=== PATIENT | female | born 1950 | race Caucasian/White ===

== ENCOUNTER 2017-12-11 07:04 | Day surgery (SDC) | payer OTHER, BC ==
--- NOTE | 2017-12-10 16:28 | RAD REPORT ---
EXAM DESCRIPTION: RADOP - Outpt Chest Pa/Lat (2 Views) - 12/10/2017 4:00 pm CLINICAL HISTORY: Preop chest, pending cardiac catheterization COMPARISON: September 2012 TECHNIQUE: PA and lateral views of the chest were obtained. FINDINGS: The lungs are clear. Lung markings are similar to comparison. No new or enlarging mediasti nal or hilar finding. Trachea is in the midline. Heart size is normal and central vasculature is with in normal limits. No pleural effusion or pneumothorax seen. No acute bony finding noted. No acute ao rtic finding. IMPRESSION: No acute cardiopulmonary process. No significant change from the prior study.
[2017-12-10 16:43] LABS: Absolute Lymphocytes (CBC) 3.5 K/uL (0.7-4.9); Absolute Monocytes 0.5 K/uL (0.1-1.3); Absolute Neutrophil 5.4 K/uL (1.8-8.0); Basophils % 0.3 % (0-1.3); Eosinophils % 1.2 % (0-4.4); Hematocrit 41.9 % (36.0-45.0); Lymphocytes % 36.9 % (15.3-44.8); MCH 30.2 pg (27.0-35.0); Monocytes % 5.3 % (3.3-12.3); RBC Red Blood Cell Count 4.55 M/uL (3.86-4.86)
[2017-12-10 16:58] LABS: Protime INR 1.07
[2017-12-10 17:12] LABS: BUN Blood Urea Nitrogen 16 mg/dL (6-20); Bicarbonate 27 mEq/L (21-31); Glomerular Filtration Rate > 90 mL/min (=/>90); Glucose Level 92 mg/dL (65-120); Potassium 3.9 mEq/L (3.6-5.0); Sodium Level 137 mEq/L (135-145)
[~2017-12-11 07:04] MED LIST: ATROPINE SULF 1 MG/10 ML SYR IV ONE; HEPA 1000U/500MLS 2,000 UNIT/1,000 ML BAG IV ONE; HEPARIN 5000 UNIT/ML 1 ML VIAL ONE; LIDOCAINE 1% 20 ML MDV ONE; NA CHLORIDE 0.9% 0 ML ONE; NICARDIPINE HCL 25 MG/10 ML IV ONE; NITROGLYCERIN/D5W 25 MG/250 ML BTL IV ONE
--- OUTSIDE RECORDS SUMMARY | 2017-12-11 07:06 | XMS REPORT ---
:1950 Author [facility] Address [address] [place] [address] Care Team Providers Name Role Phone Unavailable Unavailable Unavailable Problems This patient has no known problems. Allergies, Adverse Reactions, Alerts This patient has no known allergies or adverse reactions. Medications This patient has no known medications. Results Test Description Test Time Test Comments Text Results Atomic Results Result Comments RAD, SHOULDER, 2017-11-29 Reason for FINAL REPORT PATIENT ID: COMPLETE (MIN 2 22:44:00 Exam:->M06.09 [id number] Clinical VIEWS), RIGHT Diagnosis: M0 6.09 Comparison: No comparison Views: 3 views of the left shoulder and 3 views of the right shoulder Report:The bone mineralization is decreased. There is no evidence of periarticular osteoporosis to suggest hyperemia. There is no evidence of subperiosteal resorption. There are no erosions. The soft tissues are remarkable for a bandage on the left shoulder superiorly . There is no evidence of a fracture, dislocation or radiopaque foreign body. There is no evidence of a lytic bone lesion. Impression:Mild degenerative changes at both the right and left shoulder joints. Joint space narrowing is visualized to a greater extent on the right. A bandage is suspected overlying the left acromioclavicular joint. Signed: Lauren Cesar Verified Date/Time: 11/29/2017 22:44:16 Reading Location: [facility] Radiology Reading Room Y PICKERING, 3 2017-11-29 Reason for FINAL REPORT PATIENT ID: VIEWS, RIGHT 22:43:00 Exam:->M06.09 [id number] Clinical Diagnosis: Rheumatoid arthritis without rheumatoid factor Comparison: No comparison Views: 3 views of the left hand and 3 views of the right hand Report:The bone mineralization is decreased. There is evidence of periarticular osteoporosis to suggest hyperemia. There is no evidence of subperiosteal resorption. There are no erosions. Sclerosis is visualized with joint space narrowing at the radiocarpal joint which is bilateral. A chronic traumatic process is suspected at the right distal interphalangeal joint with joint space narrowing. The soft tissues are unremarkable. There is no evidence of a fracture, dislocation or radiopaque foreign body. There is no evidence of a lytic bone lesion. Impression:Demineralized bone with degenerative change noted. Chronic traumatic changes suspected at the distal right interphalangeal joint. Signed: Lauren Cesar Verified Date/Time: 11/29/2017 22:43:03 Reading Location: [facility] Radiology Reading Room , HAND, 3 2017-08-06 Reason for FINAL REPORT PATIENT ID: VIEWS, LEFT 17:14:00 Exam:->M06.09 [id number] Clinical Diagnosis: Rheumatoid arthritis without rheumatoid factor Comparison: No comparison Views: 3 views of the left hand and 3 views of the right hand Report:The bone mineralization is decreased. There is evidence of periarticular osteoporosis to suggest hyperemia. There is no evidence of subperiosteal resorption. There are no erosions. Sclerosis is visualized with joint space narrowing at the radiocarpal joint which is bilateral. A chronic traumatic process is suspected at the right distal interphalangeal joint with joint space narrowing. The soft tissues are unremarkable. There is no evidence of a fracture, dislocation or radiopaque foreign body. There is no evidence of a lytic bone lesion. Impression:Demineralized bone with degenerative change noted. Chronic traumatic changes suspected at the distal right interphalangeal joint. Signed: Lauren Cesar Verified Date/Time: 08/06/2017 17:14:10 Reading Location: [facility] Radiology Reading Room , SHOULDER, 2017-08-06 Reason for FINAL REPORT PATIENT ID: COMPLETE (MIN 2 17:11:00 Exam:->M06.09 [id number] Clinical VIEWS), LEFT Diagnosis: M0 6.09 Comparison: No comparison Views: 3 views of the left shoulder and 3 views of the right shoulder Report:The bone mineralization is decreased. There is no evidence of periarticular osteoporosis to suggest hyperemia. There is no evidence of subperiosteal resorption. There are no erosions. The soft tissues are remarkable for a bandage on the left shoulder superiorly . There is no evidence of a fracture, dislocation or radiopaque foreign body. There is no evidence of a lytic bone lesion. Impression:Mild degenerative changes at both the right and left shoulder joints. Joint space narrowing is visualized to a greater extent on the right. A bandage is suspected overlying the left acromioclavicular joint. Signed: Lauren Cesar MDReport Verified Date/Time: 08/06/2017 17:11:40 Reading Location: [facility] Radiology Reading Room
--- OUTSIDE RECORDS SUMMARY | 2017-12-11 07:06 | XMS REPORT | Clinical Summary ---
:1950 Author Organization [facility] Address [address] [place] [address] Phone Care Team Providers Name Role Phone Unavailable Primary Care Provider Unavailable Allergies Not on File Current Medications Not on file Active Problems Not on file Encounters Date Type Specialty Care Team Description 08/06/2017 Hospital Encounter Paulina Aviles Rheumatoid arthritis sylvia Dee MD multiple sites without rheumatoid factor (HCC);Polyarthritis with negative rheumatoid factor (HCC);Rheumatoid arthritis without rheumatoid factor, multiple sites (HCC);Rheumatoid arthritis, seronegative, multiple sites (HCC) 08/06/2017 Hospital Encounter Paulina Aviles Rheumatoid Duane MD multiple sites without rheumatoid factor (HCC);Polyarthritis with negative rheumatoid factor (HCC);Rheumatoid arthritis without rheumatoid factor, multiple sites (HCC);Rheumatoid arthritis, seronegative, multiple sites (HCC) 08/06/2017 Hospital Encounter Paulina Aviles Rheumatoid arthritis sylvia Dee MD multiple sites without rheumatoid factor (HCC);Polyarthritis with negative rheumatoid factor (HCC);Rheumatoid arthritis without rheumatoid factor, multiple sites (HCC);Rheumatoid arthritis, seronegative, multiple sites (HCC) 08/06/2017 Hospital Encounter Paulina Aviles Rheumatoid arthritis sylvia Dee MD multiple sites without rheumatoid factor (HCC);Polyarthritis with negative rheumatoid factor (HCC);Rheumatoid arthritis without rheumatoid factor, multiple sites (HCC);Rheumatoid arthritis, seronegative, multiple sites (HCC) 08/06/2017 Outside Orders Paulina Aviles Rheumatoid arthritis sylvia Dee MD multiple sites without rheumatoid factor (HCC) (Primary Dx);Polyarthritis with negative rheumatoid factor (HCC);Rheumatoid arthritis without rheumatoid factor, multiple sites (HCC);Rheumatoid arthritis, seronegative, multiple sites (HCC) after 12/10/2016 Social History Tobacco Use Types Packs/Day Years Used Date Never Assessed Sex Assigned at Date Recorded Not on file Last Filed Vital Signs Not on file Plan of Treatment Not on file Results XR shoulder complete 2 views min right (08/06/2017 4:36 PM) Specimen Performing Laboratory GE RIS Narrative FINAL REPORT Clinical Diagnosis: M0 6.09 Comparison: No comparison Views: 3 views of the left shoulder and 3 views of the right shoulder Report: The bone mineralization is decreased. There is no evidence of periarticular osteoporosis to suggest hyperemia.There is no evidence of subperiosteal resorption.There are no erosions. The soft tissues are remarkable for a bandage on the left shoulder superiorly . There is no evidence of a fracture, dislocation or radiopaque foreign body. There is no evidence of a lytic bone lesion. Impression: Mild degenerative changes at both the right and left shoulder joints. Joint space narrowing is visualized to a greater extent on the right. A bandage is suspected overlying the left acromioclavicular joint. Signed: Lauren Cesar MD Report Verified Date/Time:11/29/2017 22:44:16 Reading Location: [facility] Radiology Reading Room Procedure Note Interface, External Ris In - 11/29/2017 10:44 PM CDT FINAL REPORT Clinical Diagnosis: M0 6.09 Comparison: No comparison Views: 3 views of the left shoulder and 3 views of the right shoulder Report: The bone mineralization is decreased. There is no evidence of periarticular osteoporosis to suggest hyperemia. There is no evidence of subperiosteal resorption. There are no erosions. The soft tissues are remarkable for a bandage on the left shoulder superiorly . There is no evidence of a fracture, dislocation or radiopaque foreign body. There is no evidence of a lytic bone lesion. Impression: Mild degenerative changes at both the right and left shoulder joints. Joint space narrowing is visualized to a greater extent on the right. A bandage is suspected overlying the left acromioclavicular joint. Signed: Lauren Cesar MD Report Verified Date/Time: 11/29/2017 22:44:16 Reading Location: [facility] Radiology Reading Room shoulder complete 2 views min left (08/06/2017 4:36 PM) Specimen Performing Laboratory GE RIS Narrative FINAL REPORT Clinical Diagnosis: M0 6.09 Comparison: No comparison Views: 3 views of the left shoulder and 3 views of the right shoulder Report: The bone mineralization is decreased. There is no evidence of periarticular osteoporosis to suggest hyperemia.There is no evidence of subperiosteal resorption.There are no erosions. The soft tissues are remarkable for a bandage on the left shoulder superiorly . There is no evidence of a fracture, dislocation or radiopaque foreign body. There is no evidence of a lytic bone lesion. Impression: Mild degenerative changes at both the right and left shoulder joints. Joint space narrowing is visualized to a greater extent on the right. A bandage is suspected overlying the left acromioclavicular joint. Signed: Lauren Cesar MD Report Verified Date/Time:08/06/2017 17:11:40 Reading Location: [facility] Radiology Reading Room Procedure Note Interface, External Ris In - 08/06/2017 5:13 PM LEAD DENTAL ASSISTANT FINAL REPORT Clinical Diagnosis: M0 6.09 Comparison: No comparison Views: 3 views of the left shoulder and 3 views of the right shoulder Report: The bone mineralization is decreased. There is no evidence of periarticular osteoporosis to suggest hyperemia. There is no evidence of subperiosteal resorption. There are no erosions. The soft tissues are remarkable for a bandage on the left shoulder superiorly . There is no evidence of a fracture, dislocation or radiopaque foreign body. There is no evidence of a lytic bone lesion. Impression: Mild degenerative changes at both the right and left shoulder joints. Joint space narrowing is visualized to a greater extent on the right. A bandage is suspected overlying the left acromioclavicular joint. Signed: Lauren Cesar MD Report Verified Date/Time: 08/06/2017 17:11:40 Reading Location: [facility] Radiology Reading Room hand 3 views right (08/06/2017 4:36 PM) Specimen Performing Laboratory GE RIS Narrative FINAL REPORT Clinical Diagnosis: Rheumatoid arthritis without rheumatoid factor Comparison: No comparison Views: 3 views of the left hand and 3 views of the right hand Report: The bone mineralization is decreased. There is evidence of periarticular osteoporosis to suggest hyperemia.There is no evidence of subperiosteal resorption.There are no erosions. Sclerosis is visualized with joint space narrowing at the radiocarpal joint which is bilateral. A chronic traumatic process is suspected at the right distal interphalangeal joint with joint space narrowing. The soft tissues are unremarkable. There is no evidence of a fracture, dislocation or radiopaque foreign body. There is no evidence of a lytic bone lesion. Impression: Demineralized bone with degenerative change noted. Chronic traumatic changes suspected at the distal right interphalangeal joint. Signed: Lauren Cesar MD Report Verified Date/Time:11/29/2017 22:43:03 Reading Location: [facility] Radiology Reading Room Procedure Note Interface, External Ris In - 11/29/2017 10:43 PM CDT FINAL REPORT Clinical Diagnosis: Rheumatoid arthritis without rheumatoid factor Comparison: No comparison Views: 3 views of the left hand and 3 views of the right hand Report: The bone mineralization is decreased. There is evidence [...] no evidence of a lytic bone lesion. Impression: Demineralized bone with degenerative change noted. Chronic traumatic changes suspected at the distal right interphalangeal joint. Signed: Lauren Cesar MD Report Verified Date/Time: 11/29/2017 22:43:03 Reading Location: [facility] Radiology Reading Room hand 3 views left (08/06/2017 4:36 PM) Specimen Performing Laboratory GE RIS Narrative FINAL REPORT Clinical Diagnosis: Rheumatoid arthritis without rheumatoid factor Comparison: No comparison Views: 3 views of the left hand and 3 views of the right hand Report: The bone mineralization is decreased. There is evidence of periarticular osteoporosis to suggest hyperemia.There is no evidence of subperiosteal resorption.There are no erosions. Sclerosis is visualized with joint space narrowing at the radiocarpal joint which is bilateral. A chronic traumatic process is suspected at the right distal interphalangeal joint with joint space narrowing. The soft tissues are unremarkable. There is no evidence of a fracture, dislocation or radiopaque foreign body. There is no evidence of a lytic bone lesion. Impression: Demineralized bone with degenerative change noted. Chronic traumatic changes suspected at the distal right interphalangeal joint. Signed: Lauren Cesar MD Report Verified Date/Time:08/06/2017 17:14:10 Reading Location: [facility] Radiology Reading Room Procedure Note Interface, External Ris In - 08/06/2017 5:16 PM LEAD DENTAL ASSISTANT FINAL REPORT Clinical Diagnosis: Rheumatoid arthritis without rheumatoid factor Comparison: No comparison Views: 3 views of the left hand and 3 views of the right hand Report: The bone mineralization is decreased. There is evidence [...] no evidence of a lytic bone lesion. Impression: Demineralized bone with degenerative change noted. Chronic traumatic changes suspected at the distal right interphalangeal joint. Signed: Lauren Cesar MD Report Verified Date/Time: 08/06/2017 17:14:10 Reading Location: [facility] Radiology Reading Room after 12/10/2016
[2017-12-11] MEDS ORDERED: NA CHLORIDE 0.9% 500 ML ONE (07:13)
[2017-12-11] MEDS ORDERED: MIDAZOLAM HCL 2 MG/2 ML INJ ONE ×2 (07:41→08:10)
[2017-12-11] MEDS ORDERED: FENTANYL CITR 100 MCG/2 ML ONE ×2 (07:42→09:24)
[2017-12-11 10:22] VITALS: BP 108/61; O2SAT 96
[2017-12-11 10:25] VITALS: TEMP 98
--- NOTE | 2017-12-11 21:00 | OP ---
Surgeon: Genaro Ham MD Procedures Performed: Cardiac catheterization with coronary and left ventricular angiography. No in tervention was done. No intervention is required. Findings: The patient has mild coronary plaque in the mid LAD. No significant stenosis. Left ventr icular ejection fraction normal. Left ventricular end-diastolic pressure 11. Procedure In Detail: The patient was brought to the cardiac roving tester laboratory in a fasting state, prepared an d draped in the usual sterile fashion, sedated with Versed and fentanyl. Right radial approach was u sed, 1% lidocaine was used to anesthetize the skin over the right radial artery. The artery was ente red using a 21-gauge needle. I used a 0.021 inch diameter, guidewire to cannulate the artery, philip rodriguez Seldinger technique, 6-Bulgarian Terumo radial sheath was placed and flushed and a radial cocktail wa s given. A TIG catheter was guided into the ascending aorta using fluoroscopy and using a Terumo Gli dewire with a short radius J-tip. The TIG catheter was used to cannulate the left main, right vidales ry, and left ventricle. There were no complications from the procedure. We withdrew the catheter wi th a J-wire, straightening it out and extending it, flushed the sheath and removed it and closed the arteriotomy using a TR band. Estimated Blood Loss: 5 cc. Complications: None. Final Diagnosis: False positive Cardiolite stress test. Vest Busheler: Angelina Amaya. CIELO/CHELO Voice ID: [id number] Report ID: [id number]
== END 2017-12-11 10:28 | disposition home or self-care (01) ==
LOC: CCL 07:04
PROVIDERS: ATTEND Internal Medicine
DX: R94.39 Abnormal result of other cardiovascular function study (principal); I25.10 Atherosclerotic heart disease of native coronary artery without angina pectoris; Z87.891 Personal history of nicotine dependence; Z88.8 Allergy status to other drugs, medicaments and biological substances; Z82.49 Family history of ischemic heart disease and other diseases of the circulatory system
CPT/HCPCS: 36415; 71046; 80048; 85025; 85610; 85730; 93458; C1893; J1644; J2250 ×2; J3010 ×2; J0583

== ENCOUNTER 2018-11-03 19:36 | Emergency (ER) | payer OTHER, BC ==
--- OUTSIDE RECORDS SUMMARY | 2018-11-03 19:39 | XMS REPORT | Continuity of Care Document ---
:1950 Author Organization Interface Problems Problem Status Onset Classification Date Comments Source Date Reported M06.4 - Active 11/17/19 [facility] [address] POLYARTHROPATHY Medications Medication Details Route Status Patient Ordering Order Source Instructions Provider Date Allergies, Adverse Reactions, Alerts Substance Category Reaction Severity Reaction Status Date Comments Source type Reported Immunizations Immunization Date Given Site Status Last Updated Comments Source Results Order Name Results Value Reference Date Interpretation Comments Source Range Hand 2 Hand 2 Patient Name: GENARO VALENTINE 11/16 - [facility] - [facility] Bilateral Bilateral : 1950; Age: 66 years Female DX DX MR: [id number] Read by: Tab Hurley MD Dictated Date/time: 11/16/16 14:40 Study: Hand 2 views Bilateral DX, Wrist 2 views bilateral DX 11/16/2016 1: 41 PM CDT Electronically Signed by: Tab Hurley MD 11/16/16 14:43 FINAL REPORT CLINICAL INDICATION: M06.4 Inflammatory polyarthropathy; siddhartha.hand pain x 4 months COMPARISON: None FINDINGS: Views and laterality: Bilateral hands 2 views each, bilateral wrist 2 views each Right: No displaced fracture or dislocation. Mild narrowing of the radiocarpal joint. No significant joint erosions. No gross soft tissue abnormalities. Left: No displaced fracture or dislocation. Mild narrowing of the radiocarpal joint. No significant joint erosions. No gross soft tissue abnormalities. IMPRESSION: No acute bony abnormalities. Mild degenerative changes of the bilateral radiocarpal joints. SL: [id number] Wrist 2 Wrist 2 Patient Name: GENARO VALENTINE 11/16 - [facility] views views /2016 - [facility] bilateral bilateral : 1950; Age: 66 years Female DX DX MR: [id number] Read by: Tab Hurley MD Dictated Date/time: 11/16/16 14:40 Study: Hand 2 views Bilateral DX, Wrist 2 views bilateral DX 11/16/2016 1: 41 PM CDT Electronically Signed by: Tab Hurley MD 11/16/16 14:43 FINAL REPORT CLINICAL INDICATION: M06.4 Inflammatory polyarthropathy; siddhartha.hand pain x 4 months COMPARISON: None FINDINGS: Views and laterality: Bilateral hands 2 views each, bilateral wrist 2 views each Right: No displaced fracture or dislocation. Mild narrowing of the radiocarpal joint. No significant joint erosions. No gross soft tissue abnormalities. Left: No displaced fracture or dislocation. Mild narrowing of the radiocarpal joint. No significant joint erosions. No gross soft tissue abnormalities. IMPRESSION: No acute bony abnormalities. Mild degenerative changes of the bilateral radiocarpal joints. SL: [id number] Vital Signs Vital Sign Value Date Comments Source Encounters Location Location Encounter Encounter Reason Attending ADM DC Status Source Details Type Number For Provider Date Date Visit [facility] Outpt Diag [id number] Paulina 11/16 11/17 [facility] Imaging [facility] Procedures Procedure Code Date Perfomer Comments Source
--- OUTSIDE RECORDS SUMMARY | 2018-11-03 19:39 | XMS REPORT | Clinical Summary ---
:1950 Author Organization [facility] Address [address] [place] [address] Care Team Providers Name Role Phone Unavailable Primary Care Provider Unavailable Allergies Not on File Medications Not on file Active Problems Not on file Social History Tobacco Use Types Packs/Day Years Used Date Never Assessed Sex Assigned at Date Recorded Not on file Job Start Date Occupation Industry Not on file Not on file Not on file Travel History Travel Start Travel End No recent travel history available. Last Filed Vital Signs Not on file Plan of Treatment Not on file Results Not on fileafter 11/02/2017 Insurance Payer Benefit Plan / Subscriber ID Type Phone Address Group MEDICARE MEDICARE A B xxxxxxxxxx Medicare BLUE CROSS/BLUE BCBS FED xxxxxxxxx [facility] [phone] [address] [place] [address]
--- OUTSIDE RECORDS SUMMARY | 2018-11-03 19:39 | XMS REPORT | Summary of Care ---
:1950 Author Organization [facility] Outpatient Imaging [facility] Address [address] [place] [phone] Encounter HQ Encntr_alias(FIN) [id number] Date(s): 11/16/16 - 11/16/16 [facility] Outpatient Imaging [address] [phone] Discharge Disposition: Home or Self Care Attending Physician: Paulina Aviles MD Vital Signs No data available for this section Problem List No data available for this section Allergies, Adverse Reactions, Alerts No data available for this section Medications No data available for this section Results No data available for this section Immunizations No data available for this section Procedures No data available for this section Social History No data available for this section Assessment and Plan No data available for this section
--- OUTSIDE RECORDS SUMMARY | 2018-11-03 19:39 | XMS REPORT ---
:1950 [facility] Address [address] [place] [address] Care Team Providers Name Role Phone Unavailable Unavailable Unavailable Problems This patient has no known problems. Allergies, Adverse Reactions, Alerts This patient has no known allergies or adverse reactions. Medications This patient has no known medications. Results Test Description Test Time Test Comments Text Results Atomic Results Result Comments ZHAO PICKERING, 2017-11-29 22:44:00 Reason for FINAL REPORT PATIENT ID: COMPLETE (MIN 2 Exam:->M06.09 [id number] Clinical VIEWS), RIGHT Diagnosis: M0 6.09 Comparison: [...] joint. Signed: Lauren Cesar MDReport Verified Date/Time: 11/29/2017 22:44:16 Reading Location: [facility] Radiology Reading Room Y PICKERING, 3 2017-11-29 22:43:00 Reason for FINAL REPORT PATIENT ID: VIEWS, RIGHT Exam:->M06.09 [id number] Clinical Diagnosis: Rheumatoid arthritis without rheumatoid factor [...] Cesar Verified Date/Time: 11/29/2017 22:43:03 Reading Location: [facility] Radiology Reading Room , HAND, 3 2017-08-06 17:14:00 Reason for FINAL REPORT PATIENT ID: VIEWS, LEFT Exam:->M06.09 [id number] Clinical Diagnosis: Rheumatoid arthritis without rheumatoid factor [...] Cesar Verified Date/Time: 08/06/2017 17:14:10 Reading Location: [facility] Radiology Reading Room , SHOULDER, 2017-08-06 17:11:00 Reason for FINAL REPORT PATIENT ID: COMPLETE (MIN 2 Exam:->M06.09 [id number] Clinical VIEWS), LEFT Diagnosis: M0 6.09 Comparison: [...] MDReport Verified Date/Time: 08/06/2017 17:11:40 Reading Location: [facility] Radiology Reading Room
[2018-11-03 20:29] LABS: Absolute Lymphocytes (CBC) 1.6 K/uL (0.7-4.9); Absolute Monocytes 1.2 K/uL (0.1-1.3); Absolute Neutrophil 11.2 K/uL (1.8-8.0); Basophils % 0.4 % (0-1.3); Eosinophils % 0.2 % (0-4.4); Hematocrit 39.6 % (36.0-45.0); Lymphocytes % 11.4 % (15.3-44.8); MPV 9.6 fL (7.6-11.3); Monocytes % 8.3 % (3.3-12.3); RBC Red Blood Cell Count 4.24 M/uL (3.86-4.86)
[2018-11-03] MEDS ORDERED: ONDANSETRON 4 MG/2 ML VIAL ONE (20:33)
[2018-11-03] MEDS ORDERED: NA CHLORIDE 0.9% 500 ML ONE (20:33)
[2018-11-03] MEDS ORDERED: MORPHINE 4 MG/ML SYR ONE (20:33)
[2018-11-03 20:43] LABS: ALT/SGPT 32 U/L (12-78); AST/SGOT 23 U/L (15-37); Albumin 3.9 g/dL (3.4-5.0); Alkaline Phosphatase 69 U/L (45-117); BUN Blood Urea Nitrogen 16 mg/dL (7-18); Bicarbonate 24 mmol/L (21-32); Bilirubin Direct < 0.1 mg/dL (0-0.2); Bilirubin Total 0.3 mg/dL (0.2-1.0); Glucose Level 159 mg/dL (74-106); Lipase 104 U/L (73-393); Potassium 3.4 mmol/L (3.5-5.1); Protein, Total 7.3 g/dL (6.4-8.2); Sodium Level 141 mmol/L (136-145)
--- NOTE | 2018-11-03 20:50 | RAD REPORT ---
EXAM DESCRIPTION: CT - Stone Protocol - 11/03/2018 8:41 pm CLINICAL HISTORY: Flank pain. FLANK PAIN COMPARISON: CT ABDOMEN PELVIS WO CONTRAST dated 09/07/2012 TECHNIQUE: Axial images were obtained without oral or IV contrast. Lack of contrast limits solid org an and vascular assessment. The [id number] spans the entirety of the system partially obscuring uppermost abdomen and lung bases. Coronal reformatted images were obtained and reviewed. All CT scans are performed using dose optimization technique as appropriate and may include automated exposure control or mA/KV adjustment according to patient size. FINDINGS: The lower lung celis are clear. Small hiatal hernia. Imaged portions of the liver and spleen show no suspicious findings on non-contrast imaging. The panc reas and adrenal glands are normal. No pathologic lymphadenopathy in the abdomen or pelvis. Small nonobstructing calculi present in the calices of both kidneys. 4.7 cm cyst is present anterior inferior left kidney with a small amount of adjacent fat stranding. No bowel obstruction, free air, free fluid or abscess. Normal appendix noted. No significant bony abnormality. Small bilateral fat containing inguinal hernias. IMPRESSION: Small nonobstructing stones in both kidneys. 4.7 cm cyst anterior inferior left kidney with small amount of adjacent fat stranding. Mild leakage f rom the cyst is a possibility.
[2018-11-03] MEDS ORDERED: CYCLOBENZAPRINE 10 MG TAB ONE (21:53)
[2018-11-03] MEDS ORDERED: NA CHLORIDE 0.9% 1,000 ML ONE (21:55)
--- NOTE | 2018-11-03 22:51 | ER ---
Nurse's Notes [facility] Name: Aminata Francisco Age: 68 yrs Sex: Female : 1950 Arrival Date: 11/03/2018 Time: 19:43 Bed 7 Private MD: Vinnie Cruz V Diagnosis: Nausea and vomiting;Low back pain Presentation: 11/03 20:01 Presenting complaint: Patient states: sudden onset of L mid back pain that radiates to aa1 LUQ with vomiting x 2 hrs. Transition of care: patient was not received from another setting of care. Onset of symptoms was November 03, 2018. Risk Assessment: Do you want to hurt yourself or someone else? Patient reports no desire to harm self or others. Initial Sepsis Screen: Does the patient meet any 2 criteria? RR > 20 per min. Does the patient have a suspected source of infection? Yes: Acute abdominal pain. Care prior to arrival: None. 20:01 Method Of Arrival: Ambulatory aa1 20:01 Acuity: FLORESITA 3 aa1 Historical: - Allergies: 20:06 NSAIDS; aa1 - Home Meds: 20:06 Fluoxetine Oral [Active]; Folic Acid Oral [Active]; Probiotic oral oral [Active]; aa1 methotrexate sodium (PF) injection injection once wkly [Active]; Cimzia subcutaneous subcutaneous every 4 wks [Active]; - PMHx: 20:06 Rheumatoid Arthritis; aa1 - PSHx: 20:06 Hysterectomy; Tonsillectomy; LAPROSCOPY OF ADMOMEN; aa1 - Immunization history:: Flu vaccine is up to date. - Social history:: Smoking status: Patient/guardian denies using tobacco. - Ebola Screening: : No symptoms or risks identified at this time. Screenin:07 Abuse screen: Denies threats or abuse. Denies injuries from another. Nutritional aa1 screening: No deficits noted. Tuberculosis screening: No symptoms or risk factors identified. Fall Risk None identified. Assessment: 20:07 General: Appears in no apparent distress. uncomfortable, ill, Behavior is cooperative, aa1 appropriate for age, restless. Pain: Complains of pain in left mid back Pain radiates to left upper quadrant Pain currently is 10 out of 10 on a pain scale. Pain began 2 hours ago. Is continuous. Neuro: Level of Consciousness is awake, alert, obeys commands, Oriented to person, place, time, situation, Moves all extremities. Speech is normal. Cardiovascular: Denies chest pain, palpitations, shortness of breath, Heart tones S1 S2 present. Respiratory: Airway is patent Respiratory effort is unlabored, Respiratory pattern is tachypnea. GI: Abdomen is non-distended, Bowel sounds present X 4 quads. Abd is soft X 4 quads Reports upper abdominal pain, nausea, vomiting. : No signs and/or symptoms were reported regarding the genitourinary system. EENT: No signs and/or symptoms were reported regarding the EENT system. Derm: Skin is intact, is healthy with good turgor, Skin is pink, warm \T\ dry. Musculoskeletal: Circulation, motion, and sensation intact. Capillary refill < 3 seconds. 21:04 Reassessment: Patient appears in no apparent distress at this time. Patient and/or aa1 family updated on plan of care and expected duration. Pain level reassessed. Patient is alert, oriented x 3, equal unlabored respirations, skin warm/dry/pink. Awaiting lab \T\ CT results. 21:40 Reassessment: Patient appears in no apparent distress at this time. Patient and/or aa1 family updated on plan of care and expected duration. Pain level reassessed. Patient is alert, oriented x 3, equal unlabored respirations, skin warm/dry/pink. Pt reports she is still having pain 10/10, provider notified. 22:28 Reassessment: Patient appears in no apparent distress at this time. Patient and/or aa1 family updated on plan of care and expected duration. Pain level reassessed. Patient is alert, oriented x 3, equal unlabored respirations, skin warm/dry/pink. Awaiting UMIC results; specimen sent at this time. 23:08 Reassessment: Patient appears in no apparent distress at this time. Patient is alert, aa1 oriented x 3, equal unlabored respirations, skin warm/dry/pink. Pt reports symptoms slightly improved after medications. Discussed d/c \T\ f/u instructions with pt \T\ spouse; denies questions or concerns at this time. Vital Signs: 20:06 BP 166 / 89; Pulse 74; Resp 28; Temp 97.7; Pulse Ox 98% on R/A; Weight 77.11 kg; Height aa1 5 ft. 8 in. (172.72 cm); Pain 10/10; 21:03 BP 157 / 77; Pulse 75; Resp 22; Pulse Ox 99% on R/A; Pain 8/10; aa1 22:28 BP 165 / 87; Pulse 76; Resp 20; Pulse Ox 98% on R/A; Pain 9/10; aa1 20:06 Body Mass Index 25.85 (77.11 kg, 172.72 cm) aa1 ED Course: 19:43 Patient arrived in ED. es 19:44 Vinnie Cruz MD is Private Physician. es 19:58 Kenny Nails PA is PHCP. cp 19:58 Kenny Castellanos MD is Attending Physician. cp 20:01 Ashley Zhao RN is Primary Nurse. aa1 20:02 Triage completed. aa1 20:06 Arm band placed on left wrist. aa1 20:07 Patient has correct armband on for positive identification. Placed in gown. Bed in low aa1 position. Call light in reach. Pulse ox on. NIBP on. 20:[address] nj 20:20 Inserted saline lock: 20 gauge in right forearm, using aseptic technique. Blood oe collected. 20:41 CT Stone Protocol In Process Unspecified. EDMS 20:41 CT completed. Patient tolerated procedure well. Patient moved back from [place]. 2 22:49 Vinnie Cruz MD is Referral Physician. cp 23:05 No provider procedures requiring assistance completed. IV discontinued, intact, aa1 bleeding controlled, No redness/swelling at site. Pressure dressing applied. Administered Medications: 20:33 Drug: Zofran 4 mg Route: IVP; Site: right forearm; aa1 21:49 Follow up: Response: No adverse reaction; Nausea unchanged aa1 20:35 Drug: morphine 4 mg Route: IVP; Site: right forearm; aa1 21:49 Follow up: Response: No adverse reaction; Pain is unchanged, physician notified aa1 20:35 Drug: NS 0.9% 500 ml Route: IV; Rate: bolus; Site: right forearm; aa1 21:00 Follow up: IV Status: Completed infusion aa1 21:45 Drug: NS 0.9% 500 ml Route: IV; Rate: bolus; Site: right forearm; aa1 23:08 Follow up: IV Status: Completed infusion aa1 21:45 Drug: NS 0.9% 1000 ml Route: IV; Rate: 125 ml/hr; Site: right forearm; aa1 23:08 Follow up: IV Status: Completed infusion aa1 21:48 Drug: Flexeril 10 mg Route: PO; aa1 23:04 Follow up: Response: No adverse reaction aa1 Outcome: 22:50 Discharge ordered by . cp 23:05 Discharged to home via wheelchair, with significant other. aa1 23:05 Condition: stable 23:05 Discharge instructions given to patient, significant other, Instructed on discharge instructions, follow up and referral plans. medication usage, Demonstrated understanding of instructions, follow-up care, medications, Prescriptions given X 3. 23:14 Patient left the ED. aa1 Signatures: Dispatcher [employer] Ashley Kingsley RN RN aa1 Brenda Cintron Corey, PA PA cp Jordan, Tramaine Colvin [facility]
--- NOTE | 2018-11-03 22:51 | EDPHYS ---
Physician Documentation [facility] Name: Aminata Francisco Age: 68 yrs Sex: Female : 1950 Arrival Date: 11/03/2018 Time: 19:43 Bed 7 Private MD: Vinnie Cruz V ED Physician Kenny Castellanos HPI: 11/03 20:15 This 68 yrs old Female presents to ER via Ambulatory with complaints of cp Abdominal Pain, Flank Pain, Vomiting. 20:15 The patient presents with abdominal pain left side. cp 20:15 Onset: The symptoms/episode began/occurred suddenly, 2 hour(s) ago. The symptoms cp radiate to the left flank. Associated signs and symptoms: Pertinent positives: nausea and vomiting, Pertinent negatives: blood in stools, chest pain, constipation, diarrhea, dysuria, fever, headache, hematuria, vomiting blood. The symptoms are described as constant. Severity of pain: in the emergency department the pain is unchanged despite home interventions. Historical: - Allergies: 20:06 NSAIDS; aa1 - Home Meds: 20:06 Fluoxetine Oral [Active]; Folic Acid Oral [Active]; Probiotic oral oral [Active]; aa1 methotrexate sodium (PF) injection injection once wkly [Active]; Cimzia subcutaneous subcutaneous every 4 wks [Active]; - PMHx: 20:06 Rheumatoid Arthritis; aa1 - PSHx: 20:06 Hysterectomy; Tonsillectomy; LAPROSCOPY OF ADMOMEN; aa1 - Immunization history:: Flu vaccine is up to date. - Social history:: Smoking status: Patient/guardian denies using tobacco. - Ebola Screening: : No symptoms or risks identified at this time. ROS: 20:20 Constitutional: Negative for body aches, chills, fever, poor PO intake. cp 20:20 Eyes: Negative for injury, pain, redness, and discharge. cp 20:20 ENT: Negative for drainage from ear(s), ear pain, sore throat, difficulty swallowing, difficulty handling secretions. 20:20 Cardiovascular: Negative for chest pain, edema, palpitations. 20:20 Abdomen/GI: Positive for abdominal pain, nausea and vomiting, of the posterior aspect of left lateral abdomen, anterior aspect of left lateral abdomen, left upper quadrant and left lower quadrant, Negative for diarrhea, constipation, black/tarry stool, rectal bleeding. 20:20 Back: Positive for flank pain, on the left. 20:20 : Negative for urinary symptoms. 20:20 Neuro: Negative for altered mental status, headache, weakness. 20:20 All other systems are negative. Exam: 20:30 Constitutional: The patient appears in no acute distress, alert, awake, cp non-diaphoretic, non-toxic, well developed, well nourished. 20:30 Head/Face: Normocephalic, atraumatic. cp 20:30 Eyes: Periorbital structures: appear normal, Conjunctiva: normal, no exudate, no injection, Sclera: no appreciated abnormality, Lids and lashes: appear normal, bilaterally. 20:30 ENT: External ear(s): are unremarkable, Nose: is normal, Mouth: Lips: moist, Oral mucosa: pink and intact, moist, Posterior pharynx: is normal, airway is patent, no erythema, no exudate. 20:30 Neck: External neck: is normal, ROM/movement: is normal, is supple, without pain, no range of motions limitations, no nuchal rigidity. 20:30 Chest/axilla: Inspection: normal, Palpation: is normal, no crepitus, no tenderness. 20:30 Cardiovascular: Rate: normal, Rhythm: regular. 20:30 Respiratory: the patient does not display signs of respiratory distress, Respirations: normal, no use of accessory muscles, no retractions, no splinting, no tachypnea, labored breathing, is not present, Breath sounds: are clear throughout, no decreased breath sounds, no stridor, no wheezing. 20:30 Abdomen/GI: Inspection: abdomen appears normal, Bowel sounds: active, all quadrants, Palpation: soft, in all quadrants, moderate abdominal tenderness, in the posterior aspect of left lateral abdomen, anterior aspect of left lateral abdomen, left upper quadrant and left lower quadrant, rebound tenderness, is not appreciated, involuntary guarding, is not appreciated. 20:30 Back: CVA tenderness, is noted on the left. 20:30 Skin: cellulitis, is not appreciated, no rash present. Vital Signs: 20:06 BP 166 / 89; Pulse 74; Resp 28; Temp 97.7; Pulse Ox 98% on R/A; Weight 77.11 kg; Height aa1 5 ft. 8 in. (172.72 cm); Pain 10/10; 21:03 BP 157 / 77; Pulse 75; Resp 22; Pulse Ox 99% on R/A; Pain 8/10; aa1 22:28 BP 165 / 87; Pulse 76; Resp 20; Pulse Ox 98% on R/A; Pain 9/10; aa1 20:06 Body Mass Index 25.85 (77.11 kg, 172.72 cm) aa1 MDM: 19:59 Patient medically screened. cp 20:45 Differential diagnosis: diverticulitis, gastritis, non-specific abd pain, pancreatitis, cp Pyelonephritis, Ureterolithiasis, urinary tract infection. 22:45 Data reviewed: vital signs, nurses notes, lab test result(s), radiologic studies, CT cp scan. 22:45 Counseling: I had a detailed discussion with the patient and/or guardian regarding: the cp historical points, exam findings, and any diagnostic results supporting the discharge/admit diagnosis, lab results, radiology results, to return to the emergency department if symptoms worsen or persist or if there are any questions or concerns that arise at home. Response to treatment: the patient's symptoms have mildly improved after treatment, and as a result, I will discharge patient. Special discussion: Based on the patient's Hx, exam, and Dx evaluation, there is no indication for emergent surgery or inpatient Tx. It is understood by the patient/guardian that if the Sx's persist or worsen they need to return immediately for re-evaluation. 11/03 20:09 Order name: Basic Metabolic Panel; Complete Time: 20:54 aa11/03 20:55 Interpretation: Normal except: K 3.4; CL 108; GLUC 159; GFR 86. cp 11/03 20:09 Order name: CBC with Diff; Complete Time: 20:54 aa11/03 20:56 Interpretation: Normal except: WBC 14.0; MAX% 79.7; LYM% 11.4; NEUT A 11.2. cp 11/03 20:09 Order name: Creatinine for Radiology; Complete Time: 20:54 aa11/03 20:09 Order name: Hepatic Function; Complete Time: 20:54 aa1 11/03 20:09 Order name: Lipase; Complete Time: 20:54 aa11/03 20:14 Order name: Urine Microscopic Only cp 11/03 20:14 Order name: CT Stone Protocol; Complete Time: 20:54 cp 11/03 22:51 Order name: Urine Dipstick--Ancillary (enter results) ms 11/03 20:09 Order name: IV Saline Lock; Complete Time: 20:09 [facility] 11/03 20:09 Order name: Labs collected and sent; Complete Time: 20:10 aa 11/03 20:14 Order name: Urine Dipstick-Ancillary (obtain specimen); Complete Time: 20:20 cp 11/03 22:44 Order name: PO challenge; Complete Time: 23:04 cp Administered Medications: 20:33 Drug: Zofran 4 mg Route: IVP; Site: right forearm; aa1 21:49 Follow up: Response: No adverse reaction; Nausea unchanged aa1 20:35 Drug: morphine 4 mg Route: IVP; Site: right forearm; aa1 21:49 Follow up: Response: No adverse reaction; Pain is unchanged, physician notified aa1 20:35 Drug: NS 0.9% 500 ml Route: IV; Rate: bolus; Site: right forearm; aa1 21:00 Follow up: IV Status: Completed infusion aa1 21:45 Drug: NS 0.9% 500 ml Route: IV; Rate: bolus; Site: right forearm; aa1 23:08 Follow up: IV Status: Completed infusion aa1 21:45 Drug: NS 0.9% 1000 ml Route: IV; Rate: 125 ml/hr; Site: right forearm; aa1 23:08 Follow up: IV Status: Completed infusion aa1 21:48 Drug: Flexeril 10 mg Route: PO; aa1 23:04 Follow up: Response: No adverse reaction aa Disposition: 11/03/18 22:50 Discharged to Home. Impression: Nausea and vomiting, Low back pain. - Condition is Stable. - Discharge Instructions: Back Pain, Adult, Nausea and Vomiting, Adult. - Prescriptions for Tylenol- Codeine #3 300-30 mg Oral Tablet - take 2 tablets by ORAL route every 6 hours As needed; 15 tablet. Zofran 4 mg Oral Tablet - take 1 tablet by ORAL route every 12 hours As needed; 20 tablet. Cyclobenzaprine 10 mg Oral Tablet - take 1 tablet by ORAL route every 8 hours As needed no driving while taking medication; 20 tablet. - Medication Reconciliation Form, Thank You Letter, Antibiotic Education, Prescription Opioid Use form. - Follow up: Vinnie Cruz MD; When: 2 - 3 days; Reason: Recheck today's complaints. - Problem is new. - Symptoms have improved. Addendum: 11/05/2018 11:19 Co-signature as Attending Physician, Kenny Castellanos MD I agree with the assessment and c lowry plan of care. Signatures: Dispatcher [employer] EDAshley Kam RN RN aa1 Kenny Castellanos MD MD cha Page, Corey, PA PA cp Corrections: (The following items were deleted from the chart) 11/03 23:14 22:50 11/03/2018 22:50 Discharged to Home. Impression: Nausea and vomiting; Low back aa1 pain. Condition is Stable. Forms are Medication Reconciliation Form, Thank You Letter, Antibiotic Education, Prescription Opioid Use. Follow up: Vinnie Cruz; When: 2 - 3 days; Reason: Recheck today's complaints. Problem is new. Symptoms have improved. cp
[2018-11-03 23:08] LABS: Urine Blood TRACE (NEG); Urine Glucose TRACE (NEG); Urine Protein NEGATIVE (NEG)
[2018-11-03 23:38] LABS: Urine Amorphous Sediment 4+ /HPF (NONE SEEN); Urine Bacteria 20-50 /HPF (<20); Urine Culture Reflex Order REFLEXED; Urine RBC <5 /HPF (NONE SEEN)
== END 2018-11-03 23:14 | disposition home or self-care (01) ==
LOC: ER 19:36
DX: M54.5 Low back pain (principal); Z88.6 Allergy status to analgesic agent
CPT/HCPCS: 87088; 85025; 87086; 80048; 36415; 80076; 83690; 76377; 74176; J7030; J2405; 81003; 81015; 87077; 87186; 96361; 96374; 96375; 99284

== ENCOUNTER 2019-05-26 10:19 | Observation (INO) | payer OTHER, BC ==
[2019-05-26 11:52] VITALS: BMI 24.3
[2019-05-26] MEDS: NACHLORIDE 0.45% 1,000 ML IV SCH (12:35)
[2019-05-26] MEDS: CEFOXITIN/SWI 1gm 1 GM/10 ML SYR IV SCH ×2 (12:35→17:35)
[2019-05-26 12:44] LABS: Absolute Lymphocytes (CBC) 2.4 K/uL (0.7-4.9); Basophils % 0.7 % (0-1.3); Hematocrit 37.1 % (36.0-45.0); Lymphocytes % 39.4 % (15.3-44.8); MPV 9.7 fL (7.6-11.3); RBC Red Blood Cell Count 4.01 M/uL (3.86-4.86)
[2019-05-26 12:47] LABS: Protime INR 1.06
[2019-05-26] MEDS ORDERED: POLYETHYL GLY 3350 17 GM/DOSE PO PRN (13:00)
[2019-05-26] MEDS ORDERED: ONDANSETRON 4 MG (ODT) TAB PO PRN (13:00)
[2019-05-26] MEDS ORDERED: ONDANSETRON 4 MG/2 ML VIAL IV PRN ×2 (13:00→16:53)
[2019-05-26] MEDS ORDERED: DIPHENHYDRAMINE 25 MG TAB/CAP PO PRN (13:00)
[2019-05-26] MEDS ORDERED: ACETAMINOPHEN 325 MG TABLET PO PRN (13:00)
[2019-05-26] MEDS ORDERED: LOPERAMIDE HCL 2 MG CAPSULE PO PRN (13:00)
[2019-05-26 13:24] LABS: ALT/SGPT 25 U/L (12-78); AST/SGOT 26 U/L (15-37); Albumin 3.7 g/dL (3.4-5.0); Alkaline Phosphatase 70 U/L (45-117); BUN Blood Urea Nitrogen 9 mg/dL (7-18); Bicarbonate 27 mmol/L (21-32); Bilirubin Direct 0.1 mg/dL (0-0.2); Bilirubin Total 0.5 mg/dL (0.2-1.0); Glucose Level 90 mg/dL (74-106); Phosphorus 3.1 mg/dL (2.5-4.9); Potassium 3.8 mmol/L (3.5-5.1); Protein, Total 7.4 g/dL (6.4-8.2); Sodium Level 142 mmol/L (136-145)
--- NOTE | 2019-05-26 14:38 | RAD REPORT ---
EXAM DESCRIPTION: CT - Abdomen Pelvis W Contrast - 05/26/2019 2:19 pm CLINICAL HISTORY: possible appendicitis, right lower quadrant pain COMPARISON: CT imaging December 2018 TECHNIQUE: Biphasic, helical CT imaging of the abdomen and pelvis was performed following 100 ml non -ionic IV contrast. Oral contrast was given. All CT scans are performed using dose optimization technique as appropriate and may include automated exposure control or mA/KV adjustment according to patient size. FINDINGS: No suspicious findings in the lung bases. The liver, spleen, and pancreas show no suspicious findings. Gallbladder and biliary tree are also wi thout suspicious finding. Symmetric renal function is present. No hydronephrosis. The December study showed a 5 centimeter complex low-density mass in the anterior mid left kidney. This is no longer present. There is a small mostly fatty mass not this site 15 x 10 mm in size. No active or worrisome finding seen. No perinephric str anding. No urinary bladder abnormality. No pyelonephritis or acute parenchymal process. Uterus has be en resected. Ovaries are absent or atrophic. No adrenal abnormalities. No gastric dilatation or wall thickening. No small bowel abnormality. No acute colon finding seen. The base of the appendix is normal with contrast extending into the lumen. However, at the tip of the appendix size has increased to 10 mm in diameter and there is a minimal amount of stranding in the f at adjacent to the appendix. The tip of the appendix is larger than seen in the December study and suspi cious for early appendicitis. No free air, free fluid or pneumatosis. No stranding elsewhere in the abdomen or pelvis. Fat extends into each inguinal canal. No bulky lymphadenopathy. No suspicious bony findings. Findings have been discussed with the referring physician in consulting surgeon. IMPRESSION: Early appendicitis findings are evident at the tip of the appendix which has enlarged si nce December 2018. There is mild stranding in the fat adjacent to the tip of the appendix. The appendix is retrocecal. The complex low-density 5 centimeter mass medial left kidney on the December study is no longer present. There is a remnant 15 x 10 mm mostly fatty mass present.
--- NOTE | 2019-05-26 14:42 | RAD REPORT ---
EXAM DESCRIPTION: RAD - Chest Pa And Lat (2 Views) - 05/26/2019 2:28 pm CLINICAL HISTORY: Preop chest, appendicitis on CT imaging COMPARISON: September 2012 TECHNIQUE: PA and lateral views of the chest were obtained. FINDINGS: The lungs are clear of mass and infiltrate. No failure or volume overload. Interstitial pa ttern is mildly prominent is similar or only fractionally progressive from prior imaging. Heart siz e is normal and central vasculature is within normal limits. No pleural effusion or pneumothorax see n. Bones are osteopenic. No acute bone finding. No aortic abnormality. IMPRESSION: No acute cardiopulmonary process.
[2019-05-26] MEDS: Ringers Lactate 1,000 ML IV ONE (15:26)
[2019-05-26] MEDS ORDERED: FENTANYL CITR 100 MCG/2 ML ONE ×2 (15:39→16:14)
[2019-05-26] MEDS ORDERED: ROCURONIUM 50 MG/5 ML VIAL IV ONE (15:39)
[2019-05-26] MEDS ORDERED: PROPOFOL 200 MG/20 ML VIAL IV ONE (15:39)
[2019-05-26] MEDS ORDERED: LIDOCAINE 2% MPF 5 ML VIAL ONE (15:40)
[2019-05-26] MEDS ORDERED: ONDANSETRON 4 MG/2 ML VIAL ONE (15:50)
[2019-05-26] MEDS ORDERED: dexAMETHasone 10 MG/ML VIAL ONE (15:50)
[2019-05-26] MEDS ORDERED: GLYCOPYRROLATE 0.2 MG/ML SYR ONE ×2 (15:59→16:13)
[2019-05-26] MEDS ORDERED: EPHEDRINE SULF 50 MG/ML VIAL ONE (16:02)
[2019-05-26] MEDS ORDERED: NEOSTIGMINE 1 MG/ML -10 ML VIAL ONE (16:14)
--- NOTE | 2019-05-26 16:18 | P.OP ---
Preoperative diagnosis: Acute Appendicitis Postoperative diagnosis: same, extensive adhesions Primary procedure: Lap Appy Secondary procedure: DA Anesthesia: General Estimated blood loss: min Specimen: appy Findings: as above Complications: None Transferred to: Recovery Room Condition: Good
[2019-05-26] MEDS: HYDROMORPHONE HCL 1 MG/ML INJ ONE ×4 (16:49→17:08)
[2019-05-26] MEDS ORDERED: HYDROMORPHONE HCL 1 MG/ML INJ IV PRN (16:53)
[2019-05-26] MEDS ORDERED: HYDROCODONE/APAP 7.5/325 MG TAB PO PRN (16:53)
[2019-05-26] MEDS ORDERED: NACHLORIDE 0.45% 1,000 ML IV ONE (17:05)
--- NOTE | 2019-05-26 19:07 | PREOPCON ---
Date of Consultation: 05/26/2019 Chief Complaint: Abdominal pain. History Of Present Illness: The patient is a 68-year-old female, who comes in with a 2-day history o f right lower quadrant abdominal pain. No nausea or vomiting. No diarrhea. She does have some loos e stools. No constipation. No blood in her stool. No dysuria or hematuria. No sore throat, runny nose, cough, headaches, or dizziness. No chest pain. No fever or chills. No anorexia. Review of Systems: Otherwise unremarkable. Past Medical History: Significant for rheumatoid arthritis. Past Surgical History: Recent hand surgery, hysterectomy, laparoscopy in the past. Allergies: NSAIDS AND MOXIFLOXACIN. Social History: She does not smoke or drink. Family History: Noncontributory. Physical Examination: Vital Signs: Stable. She is afebrile. General: She is awake, alert, and oriented x3. Head and Neck: Cranial nerves 2 through 12 are grossly within normal limits. No neck masses. No JV D. Throat clear. Neck is supple. Chest: Clear. Heart: S1, S2. Abdomen: Soft, nondistended. Positive Rovsing sign. Positive right lower quadrant tenderness with rebound. No rigidity or guarding. Extremities: Adequately perfused. Nontender. Neuro: Nonfocal. Diagnostic Data: CAT scan of the abdomen and pelvis reveals early appendicitis, findings are evident at the tip of the appendix, which has enlarged since December 2018. There is mild stranding in the fat adjacent to the tip of the appendix and the appendix is retrocecal. Her white count is normal. Rosy mistries reviewed. H and H normal. Platelets normal. INR normal. Assessment: Acute appendicitis. Plan: Admit, n.p.o., IV fluid, IV antibiotic. To OR for lap-appy, possible open. Patient understan ds the risks, benefits, and alternatives and agrees to procedure. /MODL Voice ID: [id number] Report ID: [id number]
[2019-05-27] MEDS: CEFOXITIN/SWI 1gm 1 GM/10 ML SYR IV SCH ×2 (00:33→08:49)
--- NOTE | 2019-05-27 02:07 | OP ---
Date of Procedure: 05/26/2019 Surgeon: Lul Poe MD Preoperative Diagnosis: Acute appendicitis. Postoperative Diagnosis: Acute appendicitis with extensive right-sided adhesions. Procedure Performed: Laparoscopic appendectomy and lysis of adhesions. Estimated Blood Loss: Minimal. Specimen: Appendix. Findings: As above. Anesthesia: General. Complications: None. Disposition: Patient tolerated the procedure in stable condition, taken to Recovery in good general condition. Description Of Procedure: Patient was brought to the OR and placed in supine position. General anes thesia was begun. The patient was prepped and draped in the usual sterile fashion. Marcaine 0.5% wa s infiltrated locally. 15-blade was used to make a 1 cm infraumbilical midline incision. Subcutaneo us tissue divided. Fascia was identified and divided. #1 Vicryl stay suture was placed. Peritoneal cavity was entered with sharp and blunt dissection. 12 mm trocar was placed into the peritoneal cav ity under direct vision. Pneumoperitoneum was established. Then, two 5 trocars were placed, 1 in th e suprapubic region and 1 in the left lower quadrant. Laparoscopy revealed extensive adhesions, omen erick in nature in the right side. We had to free this up in order to get to the appendix and it was f rom right lower quadrant all the way to the right upper quadrant. This was done with LigaSure. Cons iderable amount of time was spent carefully taking down the adhesions. Bleeding was controlled with cautery and then the appendix was identified, was retrocecal, and distal 2/3 of the appendix appeared to be acutely inflamed. The appendix and mesoappendix were clearly identified, and base of the appe ndix and the cecum clearly identified. LigaSure was used to divide the mesoappendix. An Endo-DAVIS st apling device used to divide the base of the appendix and then the appendix retrieved through the umb ilicus via an EndoCatch bag. Right lower quadrant was irrigated. The effluent was clear. No eviden ce of bleeding or bowel injury appreciated. Subsequently, all trocars were removed under direct visi on. Stay sutures were tied to each other to reapproximate the fascial defect. Subcutaneous wounds w ere irrigated. Bleeding was controlled with cautery. 3-0 chromic was used to approximate subcutaneo us tissue and johanna used to close the skin. Sterile dressing was applied. Patient was awakened an d taken to Recovery in good general condition. EMILY/CHELO Voice ID: [id number] Report ID: [id number]
[2019-05-27 05:46] LABS: Basophils % 0.2 % (0-1.3); Hematocrit 33.3 % (36.0-45.0); Lymphocytes % 12.8 % (15.3-44.8); MPV 9.2 fL (7.6-11.3); RBC Red Blood Cell Count 3.63 M/uL (3.86-4.86)
[2019-05-27 06:01] LABS: BUN Blood Urea Nitrogen 9 mg/dL (7-18); Bicarbonate 28 mmol/L (21-32); Glucose Level 133 mg/dL (74-106); Magnesium 2.2 mg/dL (1.8-2.4); Potassium 4.7 mmol/L (3.5-5.1); Sodium Level 141 mmol/L (136-145)
[2019-05-27] MEDS: NACHLORIDE 0.45% 1,000 ML IV SCH (08:52)
[2019-05-27 09:04] VITALS: O2SAT 92
--- NOTE | 2019-05-27 09:26 | EKG ---
Test Date: 2019-05-26 Test Time: 12:13:37 [employer] Specialist: CLAUDIA MEASUREMENT RESULTS: Intervals: Rate: 62 [place]: 142 QRSD: 84 QT: 410 QTc: 416 [place]: P: 40 [place]: 142 QRS: 48 T: 58 INTERPRETIVE STATEMENTS: Normal sinus rhythm Normal ECG Compared to ECG 09/07/2012 05:30:21 No significant changes Electronically Signed On 05-27-19 09:24:14 CDT by Genaro Hma
[2019-05-27 13:13] VITALS: BP 103/57; TEMP 97.5
--- NOTE | 2019-05-27 15:10 | PN ---
Date of Progress Note: 05/27/2019 Subjective: Patient is awake, alert. No complaints. Tolerating diet, ambulating, pain controlled o n p.o. pain medication. Objective: Vital Signs: Stable. Afebrile. Abdomen: Benign. Assessment: Status post laparoscopic appendectomy and lysis of adhesions. Plan: Patient cleared for discharge from surgical standpoint. See discharge instructions. Follow u p in my office in 1 week. /MODL Voice ID: [id number] Report ID: [id number]
--- NOTE | 2019-05-27 21:40 | P.DS ---
Admission Date: 05/26/19 Discharge Date: 05/27/19 Disposition: ROUTINE DISCHARGE Discharge Condition: GOOD Hospital Course: MRS. VALENTINE DID WELL WITH APPENDECTOMY. SHE IS STABLE TO GO HOME TODAY. Vital Signs/Physical Exam: Temp Pulse Resp BP Pulse Ox 97.5 F 68 20 103/57 L 91 05/27/19 12:00 05/27/19 12:00 05/27/19 12:00 05/27/19 12:00 05/27/19 12:00 Laboratory Data at Discharge: WBC 7.7 K/uL (4.3-10.9) D 05/27/19 05:29 Hgb 11.3 g/dL (12.0-15.0) L 05/27/19 05:29 Hct 33.3 % (36.0-45.0) L 05/27/19 05:29 Plt Count 181 K/uL (152-406) 05/27/19 05:29 PT 12.5 SECONDS (9.5-12.5) 05/26/19 12:16 INR 1.06 05/26/19 12:16 APTT 32.0 SECONDS (24.3-36.9) 05/26/19 12:16 Sodium 141 mmol/L (136-145) 05/27/19 05:29 Potassium 4.7 mmol/L (3.5-5.1) 05/27/19 05:29 BUN 9 mg/dL (7-18) 05/27/19 05:29 Creatinine 0.56 mg/dL (0.55-1.3) 05/27/19 05:29 Glucose 133 mg/dL (74-106) H 05/27/19 05:29 Phosphorus 3.1 mg/dL (2.5-4.9) 05/26/19 12:16 Magnesium 2.2 mg/dL (1.8-2.4) 05/27/19 05:29 Total Bilirubin 0.5 mg/dL (0.2-1.0) 05/26/19 12:16 AST 26 U/L (15-37) 05/26/19 12:16 ALT 25 U/L (12-78) 05/26/19 12:16 Alkaline Phosphatase 70 U/L (45-117) 05/26/19 12:16 Home Medications: Cholecalciferol (Vitamin D3) [Vitamin D3] 2,000 unit PO DAILY 05/26/19 Estrogens,Conjugated [Premarin] 45 gm VG SEECOM 05/26/19 Ezetimibe 10 mg PO DAILY 05/26/19 Fluoxetine HCl [Prozac] 20 mg PO DAILY 05/26/19 Folic Acid 1 mg PO DAILY 05/26/19 Hyaluronate Sodium [Biolon] 10 mg IO SEECOM 05/26/19 Krill Oil/[place]-3/Dha/Epa [Cvs [place]-3 Krill Oil Softgel] 1 each PO DAILY Lactobacillus Acidophilus [Probiotic Acidophilus] 1 each PO DAILY 05/26/19 Lactobacillus Rhamnosus R0011 [Probiotic Digestive Care] 1 each PO DAILY Methotrexate Sodium [Methotrexate] 2.5 mg PO SEECOM 05/26/19 Multivit-Min/Iron/Folic/Lutein [Multivitamin Women 50 Plus Tab] 1 tab PO DAILY 05/26/19 Polyethylene Glycol 3350 [Miralax] 17 gm PO DAILY 05/26/19 Patient Discharge Instructions: remove dressing in am and shower. keep wound clean and dry Diet: Regular Activity: No lifting more than 10 lbs Followup: Lul Poe MD [ACTIVE - CAN ADMIT] - 1 Week
== END 2019-05-27 13:03 | disposition home or self-care (01) ==
LOC: 2ND 10:59
PROVIDERS: ADMIT Internal Medicine; ATTEND Internal Medicine
PROC: 0DNU4ZZ Release Omentum, Percutaneous Endoscopic Approach (ICD-10-PCS; 2019-05-26)
PROC: 0DTJ4ZZ Resection of Appendix, Percutaneous Endoscopic Approach (ICD-10-PCS; principal; 2019-05-26 15:15)
DX: K35.80 Unspecified acute appendicitis (principal); K66.0 Peritoneal adhesions (postprocedural) (postinfection); M06.9 Rheumatoid arthritis, unspecified; Z88.8 Allergy status to other drugs, medicaments and biological substances
CPT/HCPCS: 93005; 87040; 85025 ×2; 80048 ×2; 36415; 83735 ×2; 84100; 85610; 80076; 88304; 85730; 84443; 82607; 82306; 74177; 71046; 44970; 49329; Q9967; J2704; J2710; J3010 ×2; J1100; J1170 ×2; G0378 ×4; J2405

== ENCOUNTER 2022-08-19 01:01 | Observation (INO) | payer OTHER, BC ==
--- OUTSIDE RECORDS SUMMARY | 2022-08-19 01:05 | XMS REPORT | Continuity of Care Document ---
:1950 Author Organization [facility] t Address [address] [place] [address] Care Team Providers Name Role Phone VINNIE CRUZ Primary Care Physician Unavailjohn e RUPERT MENON Attending Clinician Unavailable Vinnie Cruz MD Attending Clinician GIANCARLO PENA Attending Clinician Unavailable Paulina Aviles Attending Clinician RUPERT MENON Admitting Clinician Unavailable SOPHIE NAVARRO Admitting Clinician Unavailable Payers Payer Name Policy Type Policy Number Effective Date Expiration Date S ource MEDICARE A B [id number] 2022 00:00:00 BCBS FED [id number] 2016 00:00:00 Problems Condition Condition Condition Status Onset Resolution Last Treating Co mments Source Name Details Category Date Date Treatment Clinician Date Intractabl Intractabl Disease Active [facility] e vomiting e vomiting 3- [facility]i [facility] with with 00:00: Medical nausea, nausea, 00 Center unspecifie unspecifie d vomiting d vomiting type type M06.4 - M06.4 - Diagnosis Active 2016-11-16 Memoria INFLAMMATO INFLAMMATO - 13:37:00 l RY RY 00:01: Cong POLYARTHRO POLYARTHRO 00 ANUJ ANUJ Active 11/16/2016 MH OPID [facility] Allergies, Adverse Reactions, Alerts Allergy Allergy Status Severity Reaction(s) Onset Inactive Treating Comm ents Source Name Type Date Date Clinician NSAIDS Allergy Active [facility]elling [facility] 00:00: Medical ANTI-INF 00 Center LAMMATOR Y DRUG) Nsaids Propensi Active Swelling Eye [facility] (Non-Jeff ty to 3- swelling [facility] roidal adverse 00:00: Medical Anti-Inf reaction 00 Center lammator s y Drug) Social History Social Habit Start Date Stop Date Quantity Comments Source History SDOH [facility] Alcohol Std Drinks Medica l Center History SDOH [facility] Alcohol Binge Medical [place] [facility] History SDOH [facility] Alcohol Frequency Medical Center Alcohol intake 2019-04-02 2019-04-02 [facility]00 [facility] alcohol Medical Center (finding) History SDOH 2019-03-31 2019-03-[address] [facility] Alcohol Comment 00:00:00 00:00:00 Medical C enter Cigarettes smoked 2018-11-12 2018-11-[address] [facility] current (pack per 00:00:00 00:00:00 Medical Center day) - Reported Tobacco use and 2018-11-12 2018-11-[address] [facility] [address] [facility] exposure 00:00:00 00:00:00 Medical Center History of tobacco 2012-11-12 [facility] use [facility] Sex Assigned At [address] [facility] 00:00:00 00:00:00 Medical Center Smoking Status Start Date Stop Date Source Tobacco smoking [facility] consumption unknown Former smoker 2018-11-12 00:00:00 2018-11-[address] [facility] 00:00:00 Center Medications Ordered Filled Start Stop Current Ordering Indication Dosage Frequency Signature Comments Components Source Medication Medication Date Date Medication? Clinician (SIG) Name Name conjugated Yes .5g Q.5W Place 0.[address] estrogens 8-01 g [facility] (PREMARIN) 10:24: vaginally Me dical 0.625 01 twice a Center mg/gram week. vaginal cream ezetimibe Yes 10mg QD Take [address] (ZETIA) 10 8-01 by mouth [facility] mg tablet 10:24: daily. Medica l 01 [place] methotrexat Yes 20mg Q7D Take [address] e 2.5 MG 8-01 by mouth [facility] tablet 10:24: once a Medical week. [place] fLUoxetine Yes 20mg QD Take [address] (PROZAC) 20 04-02 by mouth Luke s MG capsule 10:24: daily. Medic al [place] folic acid Yes 1mg Take [address] (FOLVITE) 1 04-02 by mouth Luke s MG tablet 10:24: daily as Medi marek needed . [place] polyethylen Yes 17g QD Take [address] e glycol 04-02 by mouth [facility] (GLYCOLAX) 10:24: daily. Medic al 17 gram Center packet multivit-ir Yes QD Take by [facility] on-min-foli 04-02 mouth [facility] c acid 10:24: daily . Medical (MULTIVITAM [place] IN-IRON-MIN ERALS-FOLIC ACID) 3,500-18-0. 4 unit-mg-mg Chew cholecalcif Yes QD Take by [facility] haroon, 04-02 mouth [facility] vitamin D3, 10:24: daily . Med ical 2,000 unit 01 [place] Cap medium Yes 15mL [id number] Take [address] chain 04-02 [id number] mLs by [facility] triglycerid 10:24: 3D mouth 3 Med ical es (MCT (three) Center OIL) 7.7 times kcal/mL oil daily. omega-3 Yes 2g Q.5D Take [address] fatty 04-02 by mouth 2 [facility] acids-fish 10:24: (two) Medica l oil 01 times [place] 340-1,000 daily. mg Cap per capsule Lactobacill Yes 1{packe Q.5D Take [address] us 04-02 t} packet by [employer] acidoph-L.b 10:24: mouth 2 Med ical ulgar (two) [place] (LACTINEX,F times LORANEX) daily. 100 million cell oral granules lactobacill Yes 1{capsu QD Take [address] us 04-02 le} capsule by [facility] rhamnosus, 10:24: mouth Medica l GG, daily. [place] (CULTURELLE ) 10 billion cell capsule certolizuma Yes Inject [facility] b pegol 04-02 subcutaneo [facility] (CIMZIA 10:24: usly every Medi marek SUBQ) 01 30 Center (thirty) days. UNKNOWN 2019-[address] 8- supplement [facility] 10:24: . Medical 01 Center Procedures Procedure Date / Time Performed Performing Clinician [facility] e US VASCULAR SCREENING 2022-07-16 16:28:00 [facility] HEART SCAN PLUS CT HEART SCAN PLUS W 2022-07-16 15:54:54 [facility] PHYSICIAN ORDER Plan of Care Planned Activity Planned Date Details Comments Source Future Scheduled Test 2022-08-14 Hepatitis C screening [facility] 14:51:31 (procedure) [code = 966400255] Future Scheduled Test 2022-08-14 BREAST CANCER [facility] 14:51:31 SCREENING [code = BREAST CANCER SCREENING] Future Scheduled Test 2022-08-14 COLONOSCOPY SCREENING [facility] 14:51:31 [code = COLONOSCOPY SCREENING] Future Scheduled Test 2022-08-14 SHINGLES VACCINES (1 [facility] 14:51:31 of 2) [code = SHINGLES VACCINES (1 of 2)] Future Scheduled Test 2022-08-14 65+ PNEUMOCOCCAL [facility] 14:51:31 VACCINE (1 - PCV) [code = 65+ PNEUMOCOCCAL VACCINE (1 - PCV)] Future Scheduled Test 2022-08-14 INFLUENZA VACCINE [facility] 14:51:31 [code = INFLUENZA VACCINE] Future Appointment 2022-09-[address] [facility] St [employer] 07:45:[address] [place] [address] Future Appointment 2022-09-[address] [facility] St [employer] 07:45:[address] [address] Procedure 2022-09-10 RELEASE, CONTRACTURE, BRENDON [place] 07:45:00 [facility] Encounters Start End Encounter Admission Attending Care Care Encounter Source Date/Time Date/Time Type Type Clinicians Facility Department ID 2022-07-31 Outpatient ALENA MENON [facility] Surgery [id number] [facility] 15:59:10 RUPERT 2021-06-10 Outpatient LUISA [facility] Surgery [id number] [facility] 15:25:06 RUPERT 2022-07-16 2022-07-16 [facility], 1.2.840.1 [id number] Methodi 09:41:42 23:59:00 Encounter Vinnie [id number] 3.430.2.7 Hospit a .3.589002 l .8 2022-07-16 2022-07-16 [facility], 1.2.840.1 [id number] Methodi 09:19:17 09:40:00 Encounter Vinnie [id number] 3.430.2.7 Hospit a .3.274083 l .8 2022-07-16 2022-07-16 Outpatient [facility] [id number] 00:00:00 00:00:00 VINNIE [address] 2022-07-16 2022-07-16 Outpatient [facility] [id number] [address] [place] [address] 00:00:00 00:00:00 VINNIE [address] 2022-07-16 2022-07-16 Travel 1.2.840.1 [id number] Methodi 00:00:00 00:00:[address] 3.430.2.7 0.2.7.3.698 Ho spita .3.297480 084.8 l .8 2022-05-30 2022-05-30 Travel 1.2.840.1 1.2.294.308 [id number] Methodi 00:00:00 00:00:[address] 3.430.2.7 0.2.7.3.698 Ho spita .3.524194 084.8 l .8 2022-05-30 2022-05-30 Transcribe [facility], 1.2.840.1 [id number] Methodi 00:00:00 00:00:00 Orders Vinnie [id number] 3.430.2.7 Hospit a .3.714889 l .8 2016-11-16 2016-11-17 Outpt Diag nullFlavo [facility] [id number] Memoria 18:28:00 04:59:00 Services r Outpatient 00 l Imaging [facility] 2016-11-16 2016-11-17 Outpt Diag nullFlavo [facility] [id number] Memoria 18:28:00 04:59:00 Services r Outpatient 00 l Imaging [facility] 2016-11-16 2016-11-16 Outpatient Traci, 2.16.840. 2.16.840.1. [id number] 13:28:00 23:59:00 Namieta 1.433245. 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 Antique Finisher sections are submitted in cassettes A1-A2. MA/ewPerformed. BLOOD CULTURE 2018-11-14 12:01:00 Test Item Value Reference Range Interpretation Comme nts CULTURE (BEAKER) (test code = 1095) No growth in 5 days BLOOD [id number] 12:01:00 Test Item Value Reference Range Interpretation Comments CULTURE (BEAKER) (test No growth in 5 days code = 1095) URINE [id number] 10:37:00 Test Item Value Reference Interpretation Comments Range CULTURE (BEAKER) COAGULASE NEGATIVE A 10-19 ,000 col/mL (test code = 1095) STAPHYLOCOCCUS Coagula se negative Staphylococcus Clindamycin (test R code = 10) Erythromycin (test R code = 4) Linezolid (test code S = 40) Nitrofurantoin (test S code = 23) Oxacillin (test code R = 14) Rifampin (test code = S 43) Tetracycline (test R code = 2) Trimethoprim + R Sulfamethoxazole (test code = 47) Vancomycin (test code S = 13) CBC W/PLT COUNT & AUTO [id number] 06:37:00 Test Item Value Reference Range Interpretation Comments WHITE BLOOD CELL COUNT (BEAKER) 9.9 K/ L 3.5-10.5 (test code = 775) RED BLOOD CELL COUNT (BEAKER) 3.32 M/ L 3.93-5.22 L (test code = 761) HEMOGLOBIN (BEAKER) (test code = 10.2 GM/DL 11.2-15.7 L 410) HEMATOCRIT (BEAKER) (test code = 31.9 % 34.1-44.9 L 411) MEAN CORPUSCULAR VOLUME (BEAKER) 96.1 fL 79.4-94.8 H (test code = 753) MEAN CORPUSCULAR HEMOGLOBIN 30.7 pg 25.6-32.2 (BEAKER) (test code = 751) MEAN CORPUSCULAR HEMOGLOBIN CONC 32.0 GM/DL 32.2-35.5 L (BEAKER) (test code = 752) RED CELL DISTRIBUTION WIDTH 14.2 % 11.7-14.4 (BEAKER) (test code = 412) PLATELET COUNT (BEAKER) (test 315 K/CU MM 150-450 code = 756) MEAN PLATELET VOLUME (BEAKER) 10.3 fL 9.4-12.3 (test code = 754) NUCLEATED RED BLOOD CELLS 0 /100 WBC 0-0 (BEAKER) (test code = 413) NEUTROPHILS RELATIVE PERCENT 68 % (BEAKER) (test code = 429) LYMPHOCYTES RELATIVE PERCENT 22 % (BEAKER) (test code = 430) MONOCYTES RELATIVE PERCENT 7 % (BEAKER) (test code = 431) EOSINOPHILS RELATIVE PERCENT 1 % (BEAKER) (test code = 432) BASOPHILS RELATIVE PERCENT 0 % (BEAKER) (test code = 437) NEUTROPHILS ABSOLUTE COUNT 6.65 K/ L 1.56-6.13 H (BEAKER) (test code = 670) LYMPHOCYTES ABSOLUTE COUNT 2.13 K/ L 1.18-3.74 (BEAKER) (test code = 414) MONOCYTES ABSOLUTE COUNT (BEAKER) 0.70 K/ L 0.24-0.36 H (test code = 415) EOSINOPHILS ABSOLUTE COUNT 0.10 K/ L 0.04-0.36 (BEAKER) (test code = 416) BASOPHILS ABSOLUTE COUNT (BEAKER) 0.04 K/ L 0.01-0.08 (test code = 417) IMMATURE GRANULOCYTES-RELATIVE 2 % 0-1 H PERCENT (BEAKER) (test code = 2801) U/S, RENAL, [id number] 18:04:00Reason for exam:->follow up renal cyst/abscessFINAL REPORT Renal ultrasonography, 11/12/2018 COMPARISON: CT 11/10/2018 TECHNIQUE: Grayscale and limited Doppler evaluations of the kidneys were performed. The right kidney appears normal measuring 11 cm in length. No stones, masses or changes of hydronephrosis or identified. Left k idney measures 12 cm in length. There is a persistent 5.3 x 5.8 cm in diameter cyst in the lower pole without definite debris or septations. The abnormal caudal-most lower pole exhibits characteristicssimilar to the remainder of the kidney. Whether this area is related to an inflammatory or other infiltrative process cannot be determined. Follow-up is recommended. Blood flow was observed in the arteries and veins. Bladder volume is one 32 cc. No definite bladder abnormalities are seen. CONCLUSION: Lower pole left renal cyst. The abnormal parenchyma in the extreme lower pole of left kidney is better appreciated with CT then with ultrasound and follow-up CT is recommended after treatment. Signed: Juan Keen MDReport Verified Date/Time: 11/12/2018 18:04:22 Reading Location: [place] [id number] Ultrasound Reading Room CT, [id number] 16:52:00FINAL REPORT INDICATION:Indeterminate cystic lesion of the kidney. COMPARISON: N one. TECHNIQUE: CT of the Abdomen and Pelvis WITHOUT and WITH intravenous contrast. The exam was performed according to our department dose-optimization protocol, which includes automated exposure control, adjustments of mA and kV according to patient size. Iterative reconstructions are also sometimesemployed. FINDINGS:Left lower pole patchy hypoenhancement with enhancing low density collection and surrounding stranding. Collection measures 6 cm. Liver, gallbladder, pancreas, spleen, adrenal glandsand right kidney are unremarkable. Patient is status post hysterectomy. There is atherosclerosis of the abdominal aorta and iliac arteries without aneurysm. Diverticuli of the left colon and sigmoid colon noted. No suspicious osseous lesion. IMPRESSION: Left pyelonephritis with perinephric abscess. Signed: Markel Jara MDReport Verified Date/Time: 11/10/2018 16:52:46 Reading Location: [facility] C013Y CT Body Reading Room CBC W/PLT COUNT & AUTO [id number] 15:05:00 Test Item Value Reference Range Interpretation Comments WHITE BLOOD CELL COUNT (BEAKER) 8.7 K/ L 3.5-10.5 (test code = 775) RED BLOOD CELL COUNT (BEAKER) 3.54 M/ L 3.93-5.22 L (test code = 761) HEMOGLOBIN (BEAKER) (test code = 11.0 GM/DL 11.2-15.7 L 410) HEMATOCRIT (BEAKER) (test code = 33.3 % 34.1-44.9 L 411) MEAN CORPUSCULAR VOLUME (BEAKER) 94.1 fL 79.4-94.8 (test code = 753) MEAN CORPUSCULAR HEMOGLOBIN 31.1 pg 25.6-32.2 (BEAKER) (test code = 751) MEAN CORPUSCULAR HEMOGLOBIN CONC 33.0 GM/DL 32.2-35.5 (BEAKER) (test code = 752) RED CELL DISTRIBUTION WIDTH 13.9 % 11.7-14.4 (BEAKER) (test code = 412) PLATELET COUNT (BEAKER) (test 209 K/CU MM 150-450 code = 756) MEAN PLATELET VOLUME (BEAKER) 11.1 fL 9.4-12.3 (test code = 754) NUCLEATED RED BLOOD CELLS 0 /100 WBC 0-0 (BEAKER) (test code = 413) (CELLAVISION MANUAL DIFF)2018-11-10 15:05:00 Test Item Value Reference Range Interpretation Comments NEUTROPHILS - REL 61 % (CELLAVISION)(BEAKER) (test code = 2816) LYMPHOCYTES - REL 28 % (CELLAVISION)(BEAKER) (test code = 2817) MONOCYTES - REL 9 % (CELLAVISION)(BEAKER) (test code = 2818) EOSINOPHILS - REL 1 % (CELLAVISION)(BEAKER) (test code = 2819) ATYPICAL LYMPHOCYTES - REL 1 % 0-0 H (CELLAVISION)(BEAKER) (test code = 2829) NEUTROPHILS - ABS 5.31 K/ul 1.56-6.13 (CELLAVISION)(BEAKER) (test code = 2830) LYMPHOCYTES - ABS 2.44 K/ul 1.18-3.74 (CELLAVISION)(BEAKER) (test code = 2831) MONOCYTES - ABS 0.78 K/uL 0.24-0.36 H (CELLAVISION)(BEAKER) (test code = 2832) EOSINOPHILS - ABS 0.09 K/uL 0.04-0.36 (CELLAVISION)(BEAKER) (test code = 2834) ATYPICAL LYMPHOCYTES - ABS 0.09 K/uL 0.00-0.00 H (CELLAVISION)(BEAKER) (test code = 2858) TOTAL COUNTED (BEAKER) (test code 100 = 1351) WBC MORPHOLOGY (BEAKER) (test Normal code = 487) CLUMPED PLATELETS (BEAKER) (test Present code = 436) GIANT PLATELETS (BEAKER) (test Present code = 313) POLYCHROMATOPHILLIC RBCS(BEAKER) 2+ moderate (test code = 478) POIKILOCYTES (BEAKER) (test code 1+ few = 966) ELLIPTOCYTES (BEAKER) (test code 1+ few = 962) ARTIFACT (CELLAVISION)(BEAKER) Present (test code = 3432) PLATELET CONCENTRATION Adequate (CELLAVISION)(BEAKER) (test code = 3438) Received comment: User comments: Slide comments:BASIC METABOLIC [id number] 14:15:00 Test Item Value Reference Range Interpretation Comments SODIUM (BEAKER) 137 meq/L 136-145 (test code = 381) POTASSIUM (BEAKER) 3.6 meq/L 3.5-5.1 (test code = 379) CHLORIDE (BEAKER) 102 meq/L 98-107 (test code = 382) CO2 (BEAKER) (test 26 meq/L 22-29 code = 355) BLOOD UREA NITROGEN 17 mg/dL 7-21 (BEAKER) (test code = 354) CREATININE (BEAKER) 0.64 mg/dL 0.57-1.25 (test code = 358) GLUCOSE RANDOM 100 mg/dL 70-105 (BEAKER) (test code = 652) CALCIUM (BEAKER) 9.1 mg/dL 8.4-10.2 (test code = 697) EGFR (BEAKER) (test 93 mL/min/1.73 ESTIMA YOUSIF GFR IS code = 1092) sq m NOT ACCURATE CREATININE CLEARANCE IN PREDICTING GLOMERULAR FILTRATION RATE . ESTIMATED GFR I S NOT APPLICABLE FOR DIALYSIS PATIEN TS. CBC W/PLT COUNT & AUTO [id number] 11:45:00 Test Item Value Reference Range Interpretation Comments WHITE BLOOD CELL COUNT (BEAKER) 10.4 K/ L 3.5-10.5 (test code = 775) RED BLOOD CELL COUNT (BEAKER) 3.47 M/ L 3.93-5.22 L (test code = 761) HEMOGLOBIN (BEAKER) (test code = 10.9 GM/DL 11.2-15.7 L 410) HEMATOCRIT (BEAKER) (test code = 32.0 % 34.1-44.9 L 411) MEAN CORPUSCULAR VOLUME (BEAKER) 92.2 fL 79.4-94.8 (test code = 753) MEAN CORPUSCULAR HEMOGLOBIN 31.4 pg 25.6-32.2 (BEAKER) (test code = 751) MEAN CORPUSCULAR HEMOGLOBIN CONC 34.1 GM/DL 32.2-35.5 (BEAKER) (test code = 752) RED CELL DISTRIBUTION WIDTH 13.8 % 11.7-14.4 (BEAKER) (test code = 412) PLATELET COUNT (BEAKER) (test 192 K/CU MM 150-450 code = 756) MEAN PLATELET VOLUME (BEAKER) 11.3 fL 9.4-12.3 (test code = 754) NUCLEATED RED BLOOD CELLS 0 /100 WBC 0-0 (BEAKER) (test code = 413) (CELLAVISION MANUAL DIFF)2018-11-09 11:45:00 Test Item Value Reference Range Interpretation Comments NEUTROPHILS - REL 80 % (CELLAVISION)(BEAKER) (test code = 2816) LYMPHOCYTES - REL 4 % (CELLAVISION)(BEAKER) (test code = 2817) MONOCYTES - REL 14 % (CELLAVISION)(BEAKER) (test code = 2818) BANDS - REL (CELLAVISION)(BEAKER) 2 % 0-10 (test code = 2826) NEUTROPHILS - ABS 8.32 K/ul 1.56-6.13 H (CELLAVISION)(BEAKER) (test code = 2830) LYMPHOCYTES - ABS 0.42 K/ul 1.18-3.74 L (CELLAVISION)(BEAKER) (test code = 2831) MONOCYTES - ABS 1.46 K/uL 0.24-0.36 H (CELLAVISION)(BEAKER) (test code = 2832) BANDS - ABS (CELLAVISION)(BEAKER) 0.21 K/uL 0.00-0.80 (test code = 2840) TOTAL COUNTED (BEAKER) (test code = 100 1351) WBC MORPHOLOGY (BEAKER) (test code Normal = 487) LARGE PLT(BEAKER) (test code = Present 2156) POLYCHROMATOPHILLIC RBCS(BEAKER) 1+ few (test code = 478) HYPOCHROMIA (BEAKER) (test code = 1+ few 963) ARTIFACT (CELLAVISION)(BEAKER) Present (test code = 3432) PLATELET CONCENTRATION Adequate (CELLAVISION)(BEAKER) (test code = 3438) Received comment: User comments: Slide comments:BASIC METABOLIC [id number] 08:08:00 Test Item Value Reference Range Interpretation Comments SODIUM (BEAKER) 129 meq/L 136-145 L (test code = 381) POTASSIUM (BEAKER) 3.9 meq/L 3.5-5.1 Specimen slightly (test code = 379) hemolyzed CHLORIDE (BEAKER) 98 meq/L 98-107 (test code = 382) CO2 (BEAKER) (test 21 meq/L 22-29 L code = 355) BLOOD UREA NITROGEN 18 mg/dL 7-21 (BEAKER) (test code = 354) CREATININE (BEAKER) 0.74 mg/dL 0.57-1.25 Specimen slightly (test code = 358) hemolyzed GLUCOSE RANDOM 113 mg/dL 70-105 H (BEAKER) (test code = 652) CALCIUM (BEAKER) 8.9 mg/dL 8.4-10.2 (test code = 697) EGFR (BEAKER) (test 78 mL/min/1.73 ESTIMA YOUSIF GFR IS code = 1092) sq m NOT ACCURATE CREATININE CLEARANCE IN PREDICTING GLOMERULAR FILTRATION RATE . ESTIMATED GFR I S NOT APPLICABLE FOR DIALYSIS PATIEN TS. LACTIC ACID, VENOUS, WHOLE [id number] 06:34:00 Test Item Value Reference Range Interpretation Comments LACTATE BLOOD VENOUS 0.9 mmol/L 0.5-2.2 Specime n slightly (2) (BEAKER) (test hemolyzed code = 2872) (CELLAVISION MANUAL DIFF)2018-11-08 20:51:00 Test Item Value Reference Range Interpretation Comments NEUTROPHILS - REL 78 % (CELLAVISION)(BEAKER) (test code = 2816) LYMPHOCYTES - REL 3 % (CELLAVISION)(BEAKER) (test code = 2817) MONOCYTES - REL 8 % (CELLAVISION)(BEAKER) (test code = 2818) BANDS - REL (CELLAVISION)(BEAKER) 8 % 0-10 (test code = 2826) ATYPICAL LYMPHOCYTES - REL 3 % 0-0 H (CELLAVISION)(BEAKER) (test code = 2829) NEUTROPHILS - ABS 10.69 K/ul 1.56-6.13 H (CELLAVISION)(BEAKER) (test code = 2830) LYMPHOCYTES - ABS 0.41 K/ul 1.18-3.74 L (CELLAVISION)(BEAKER) (test code = 2831) MONOCYTES - ABS 1.10 K/uL 0.24-0.36 H (CELLAVISION)(BEAKER) (test code = 2832) BANDS - ABS (CELLAVISION)(BEAKER) 1.10 K/uL 0.00-0.80 H (test code = 2840) ATYPICAL LYMPHOCYTES - ABS 0.41 K/uL 0.00-0.00 H (CELLAVISION)(BEAKER) (test code = 2858) TOTAL COUNTED (BEAKER) (test code 100 = 1351) SMUDGE CELLS (BEAKER) (test code = Present 1371) GIANT PLATELETS (BEAKER) (test Present code = 313) POLYCHROMATOPHILLIC RBCS(BEAKER) 1+ few (test code = 478) PLATELET CONCENTRATION Adequate (CELLAVISION)(BEAKER) (test code = 3438) Received comment: User comments: Slide comments:CBC W/PLT COUNT & AUTO [id number] 20:50:00 Test Item Value Reference Range Interpretation Comments WHITE BLOOD CELL COUNT (BEAKER) 13.7 K/ L 3.5-10.5 H (test code = 775) RED BLOOD CELL COUNT (BEAKER) 3.94 M/ L 3.93-5.22 (test code = 761) HEMOGLOBIN (BEAKER) (test code = 12.3 GM/DL 11.2-15.7 410) HEMATOCRIT (BEAKER) (test code = 36.2 % 34.1-44.9 411) MEAN CORPUSCULAR VOLUME (BEAKER) 91.9 fL 79.4-94.8 (test code = 753) MEAN CORPUSCULAR HEMOGLOBIN 31.2 pg 25.6-32.2 (BEAKER) (test code = 751) MEAN CORPUSCULAR HEMOGLOBIN CONC 34.0 GM/DL 32.2-35.5 (BEAKER) (test code = 752) RED CELL DISTRIBUTION WIDTH 13.3 % 11.7-14.4 (BEAKER) (test code = 412) PLATELET COUNT (BEAKER) (test 195 K/CU MM 150-450 code = 756) MEAN PLATELET VOLUME (BEAKER) 10.9 fL 9.4-12.3 (test code = 754) NUCLEATED RED BLOOD CELLS 0 /100 WBC 0-0 (BEAKER) (test code = 413) [id number] 20:50:00 Test Item Value Reference Range Interpretation Comments MAGNESIUM (BEAKER) (test code = 2.4 mg/dL 1.6-2.6 627) COMPREHENSIVE METABOLIC [id number] 20:50:00 Test Item Value Reference Range Interpretation Comments TOTAL PROTEIN 7.8 gm/dL 6.0-8.3 (BEAKER) (test code = 770) ALBUMIN (BEAKER) 3.7 g/dL 3.5-5.0 (test code = 1145) ALKALINE PHOSPHATASE 91 U/L 40-150 (BEAKER) (test code = 346) BILIRUBIN TOTAL 0.5 mg/dL 0.2-1.2 (BEAKER) (test code = 377) SODIUM (BEAKER) (test 129 meq/L 136-145 L code = 381) POTASSIUM (BEAKER) 2.9 meq/L 3.5-5.1 L (test code = 379) CHLORIDE (BEAKER) 91 meq/L 98-107 L (test code = 382) CO2 (BEAKER) (test 24 meq/L 22-29 code = 355) BLOOD UREA NITROGEN 23 mg/dL 7-21 H (BEAKER) (test code = 354) CREATININE (BEAKER) 1.09 mg/dL 0.57-1.25 (test code = 358) GLUCOSE RANDOM 137 mg/dL 70-105 H (BEAKER) (test code = 652) CALCIUM (BEAKER) 10.0 mg/dL 8.4-10.2 (test code = 697) AST (SGOT) (BEAKER) 73 U/L 5-34 H (test code = 353) ALT (SGPT) (BEAKER) 45 U/L 6-55 (test code = 347) EGFR (BEAKER) (test 50 mL/min/1.73 ESTIMA YOUSIF GFR IS code = 1092) sq m NOT ACCURATE CREATININE CLEARANCE IN PREDICTING GLOMERULAR FILTRATION RATE . ESTIMATED GFR I S NOT APPLICABLE FOR DIALYSIS PATIEN TS. URINALYSIS WITH MICROSCOPIC IF [id number] 20:34:00 Test Item Value Reference Range Interpretation Comments COLOR (BEAKER) (test code = 470) Yellow CLARITY (BEAKER) (test code = 469) Hazy SPECIFIC GRAVITY UA (BEAKER) (test 1.013 1.001-1.035 code = 468) PH UA (BEAKER) (test code = 467) 6.0 5.0-8.0 PROTEIN UA (BEAKER) (test code = 100 mg/dL Negative A 464) GLUCOSE UA (BEAKER) (test code = 100 mg/dL Negative A 365) KETONES UA (BEAKER) (test code = 20 mg/dL Negative A 371) BILIRUBIN UA (BEAKER) (test code = Negative Negative 462) BLOOD UA (BEAKER) (test code = 461) Small Negative A NITRITE UA (BEAKER) (test code = Negative Negative 465) LEUKOCYTE ESTERASE UA (BEAKER) Small Negative A (test code = 466) UROBILINOGEN UA (BEAKER) (test code 0.2 mg/dL 0.2-1.0 = 463) SOURCE(BEAKER) (test code = 2795) URINALYSIS [id number] 20:34:00 Test Item Value Reference Range Interpretation Comments RBC UA (BEAKER) (test code = 519) < /HPF WBC UA (BEAKER) (test code = 520) 10 /HPF MUCUS (BEAKER) (test code = 1574) Occasional SQUAMOUS EPITHELIAL (BEAKER) (test 2 /HPF code = 516) HYALINE CASTS (BEAKER) (test code 3 /LPF = 514) WBC CASTS (BEAKER) (test code = 2 /LPF 1578) RAD, SHOULDER, COMPLETE (MIN 2 VIEWS), [id number] 22:44:00Reason for Exam:->M06.09FINAL REPORT Clinical Diagnosis: M0 6.09 Comparison: No comparison Views: 3 views of the left shoulder and 3 views of the right shoulder Report:The bone mineralization is decreased. There is no evidence of periarticular osteoporosis to suggest hyperemia. There is no evidence of sub periosteal resorption. There are no erosions. The soft tissues are remarkable for a bandage on the left shoulder superiorly . There is no evidence of a fracture, dislocation or radiopaque foreign body.There is no evidence of a lytic bone lesion. Impression:Mild degenerative changes at both the right and left shoulder joints. Joint space narrowing is visualized to a greater extent on the right. A bandage is suspected overlying the left acromioclavicular joint. Signed: Shirley Cesar MDReport Verified Date/Time: 11/29/2017 22:44:16 Reading Location: [facility] Radiology Reading Room RAD, HAND, 3 VIEWS, [id number] 22:43:00Reason for Exam:->M06.09FINAL REPORT Clinical Diagnosis: Rheumatoid arthritis without rheumatoid factorComparison: No comparison Views: 3 views of the [...] dislocation or radiopaque foreign body. There is noevidence of a lytic bone lesion. Impression:Demineralized bone with degenerative change noted. Chronic traumatic changes suspected at the distal right interphalangeal joint. Signed: Shirley Cesar Verified Date/Time: 11/29/2017 22:43:03 Reading Location: [facility] Radiology Reading Room RAD, HAND, 3 VIEWS, [id number] 17:14:00Reason for Exam:->M06.09FINAL REPORT Clinical Diagnosis: Rheumatoid arthritis without rheumatoid factorComparison: No comparison Views: 3 views of the left hand and 3 views of the right hand Report:The bone mineralization is decreased. There is evidence of periarticular osteoporosis to suggest hyperemia . There is no evidence of subperiosteal resorption. There are no erosions. Sclerosis is visualized with joint space narrowing at the radiocarpal joint which is bilateral. A chronic traumatic process issuspected at the right distal interphalangeal joint with joint space narrowing. The soft tissues are unremarkable. There is no evidence of a fracture, dislocation or radiopaque foreign body. There is no evidence of a lytic bone lesion. Impression:Demineralized bone with degenerative change noted. Chronic traumatic changes suspected at the distal right interphalangeal joint. Signed: Shirley Cesar Verified Date/Time: 08/06/2017 17:14:10 Reading Location: [facility] Radiology Reading Room RAD, SHOULDER, COMPLETE (MIN 2 VIEWS), [id number] 17:11:00Reason for Exam:->M06.09FINAL REPORT Clinical Diagnosis: M0 6.09 Comparison: No [...] of a fracture, dislocation or radiopaque foreign body.There is no evidence of a lytic bone lesion. Impression:Mild degenerative changes at both the right and left shoulder joints. Joint space narrowing is visualized to a greater extent on the right. A bandage is suspected overlying the left acromioclavicular joint. Signed: Shirley Cesar MDReport Verified Date/Time: 08/06/2017 17:11:40 Reading Location: [facility] Radiology Reading Room
[2022-08-19] MEDS ORDERED: METOPROLOL TAR 25 MG TAB ONE (01:31)
[2022-08-19] MEDS ORDERED: NA CHLORIDE 0.9% 1,000 ML ONE (01:31)
[2022-08-19] MEDS ORDERED: ASPIRIN EC 81 MG TAB PO ONE (01:32)
[2022-08-19 01:56] LABS: Absolute Lymphocytes (CBC) 1.6 K/uL (0.7-4.9); Lymphocytes % 18.9 % (15.3-44.8); MCV 93.4 fL (80-100); RBC Red Blood Cell Count 4.07 M/uL (3.86-4.86)
[2022-08-19 01:59] LABS: Protime INR 1.12
[2022-08-19 02:08] LABS: SARS-CoV-2 Antigen Rapid Res Negative (Negative)
--- NOTE | 2022-08-19 02:15 | ER ---
Nurse's Notes [facility] Name: Aminata Francisco Age: 71 yrs Sex: Female : 1950 Arrival Date: 08/19/2022 Time: 01:08 Bed 18 Private MD: Diagnosis: Essential (primary) hypertension;Headache;Chest pain, unspecified-atypical;Rheumatoid arthritis, unspecified Presentation: 08/19 01:22 Chief complaint: Patient states: "I woke up with a really bad headache and left arm vc1 pain. I took my BP and it was 170/80.". Coronavirus screen: Vaccine status: Patient reports receiving the 2nd dose of the covid vaccine. 2 plus 1 booster moderna; 1 booster Pfizer At this time, the client does not indicate any symptoms associated with coronavirus-19. Ebola Screen: No symptoms or risks identified at this time. Initial Sepsis Screen: Does the patient meet any 2 criteria? No. Patient's initial sepsis screen is negative. Does the patient have a suspected source of infection? No. Patient's initial sepsis screen is negative. Risk Assessment: Do you want to hurt yourself or someone else? Patient reports no desire to harm self or others. Onset of symptoms was August 19, 2022. 01:22 Method Of Arrival: Ambulatory vc1 01:22 Acuity: FLORESITA 3 vc1 Triage Assessment: 01:25 Headache History: Other Has had a headache like this before but doesn't get headaches vc1 very often. General: Appears in no apparent distress. uncomfortable, Behavior is cooperative, appropriate for age. Pain: Complains of pain in left arm Pain Pain began suddenly, Also complains of no other associated symptoms. EENT: No deficits noted. No signs and/or symptoms were reported regarding the EENT system. Neuro: Level of Consciousness is awake, alert, obeys commands, Oriented to person, place, time, situation. Cardiovascular: Patient's skin is warm and dry. Respiratory: Airway is patent Respiratory effort is even, unlabored, Respiratory pattern is regular, symmetrical. GI: No deficits noted. : No deficits noted. No signs and/or symptoms were reported regarding the genitourinary system. Derm: No deficits noted. No signs and/or symptoms reported regarding the dermatologic system. Musculoskeletal: No deficits noted. No signs and/or symptoms reported regarding the musculoskeletal system. Historical: - Allergies: 01:24 NSAIDS; vc1 - Home Meds: 01:24 Cimzia subcutaneous every 4 wks [Active]; Fluoxetine Oral [Active]; Folic Acid Oral vc1 [Active]; methotrexate sodium (PF) injection once wkly [Active]; Probiotic Oral [Active]; - PMHx: 01:24 Rheumatoid Arthritis; vc1 - PSHx: 01:24 Hysterectomy; vc1 - Immunization history:: Adult Immunizations up to date, Client reports receiving the 2nd dose of the Covid vaccine. - Family history:: not pertinent. - Social history:: Smoking status: Patient denies any tobacco usage or history of. Screenin:27 Abuse screen: Denies threats or abuse. Nutritional screening: No deficits noted. vc1 Tuberculosis screening: No symptoms or risk factors identified. Fall Risk No fall in past 12 months (0 pts). Assessment: 02:38 Reassessment: Patient is alert, oriented x 3, equal unlabored respirations, skin ke1 warm/dry/pink. Patient denies pain at this time. Patient states feeling better. Patient states symptoms have improved. Vital Signs: 01:22 BP 135 / 66; Pulse 68; Resp 18; Temp 98; Pulse Ox 97% on R/A; Weight 72.57 kg; Height 5 vc1 ft. 8 in. (172.72 cm); 02:31 BP 127 / 62 LA; ke1 02:32 BP 119 / 61 RA; ke1 01:22 Body Mass Index 24.33 (72.57 kg, 172.72 cm) vc1 ED Course: 01:08 Patient arrived in ED. ja2 01:13 Kenny Castellanos MD is Attending Physician. dewey 01:15 Carson Parker RN is Primary Nurse. ke1 01:24 Triage completed. vc1 01:27 Arm band placed on. vc1 01:27 Patient has correct armband on for positive identification. Bed in low position. Call vc1 light in reach. 01:35 Inserted saline lock: 18 gauge in right forearm, using aseptic technique. ke1 01:53 Basic Metabolic Panel Sent. ke1 01:53 CBC with Diff Sent. ke1 01:53 LFT's Sent. ke1 01:53 Magnesium Sent. ke1 01:53 NT PRO-BNP Sent. ke1 01:53 PT-INR Sent. ke1 01:53 Troponin HS Sent. ke1 01:53 SARS RAPID Sent. ke1 01:54 Lipase Sent. ke1 02:07 CT Head Brain wo Cont In Process Unspecified. EDMS 02:12 Donaldo Whelan is Hospitalizing Provider[facility] 02:19 CT Aorta for Dissection In Process Unspecified. EDMS 02:42 XRAY Chest (1 view) In Process Unspecified. EDMS 03:08 CT Head Brain w Cont: venous phase In Process Unspecified. EDMS 03:50 No provider procedures requiring assistance completed. Patient admitted, IV remains in ke1 place. Administered Medications: 01:32 Drug: Lopressor (metoprolol TARTRATE)) 25 mg Route: PO; ke1 02:00 Drug: Aspirin 81 mg Route: PO; ke1 02:15 Drug: NS 0.9% 1000 ml Route: IV; Rate: 125 ml/hr; Site: right forearm; ke1 02:15 Drug: Pepcid (famotidine) 20 mg Route: IVP; Site: right forearm; ke1 Medication: 01:28 VIS not applicable for this client. vc1 Outcome: 02:15 Decision to Hospitalize by Provider. dewey 03:50 Admitted to Med/surg accompanied by tech. ke1 03:50 Condition: good ke1 04:10 Patient left the ED. ke1 Signatures: Dispatcher [employer] Kenny Rojas MD MD cha Alexander, Jessica ja2 Calcote, Vanessa, RN RN vc1 Carson Parker RN RN ke1
--- NOTE | 2022-08-19 02:15 | EDPHYS ---
Physician Documentation [facility] Name: Aminata Francisco Age: 71 yrs Sex: Female : 1950 Arrival Date: 08/19/2022 Time: 01:08 Bed 18 Private MD: MANISH Physician Kenny Castellanos HPI: 08/19 01:51 This 71 yrs old Female presents to ER via Ambulatory with complaints of High dewey Blood Pressure, Arm Pain, Headache. 01:51 The patient has elevated blood pressure and discovered this at home. Onset: The dewey symptoms/episode began/occurred just prior to arrival, this morning. Modifying factors: The symptoms are aggravated by activity, The symptoms are alleviated by remaining still. Associated signs and symptoms: Pertinent positives: weakness. Severity of symptoms: At its worst the blood pressure was mild, in the emergency department the blood pressure is unchanged. The patient has experienced similar episodes in the past, several times. Historical: - Allergies: 01:24 NSAIDS; vc1 - Home Meds: 01:24 Cimzia subcutaneous every 4 wks [Active]; Fluoxetine Oral [Active]; Folic Acid Oral vc1 [Active]; methotrexate sodium (PF) injection once wkly [Active]; Probiotic Oral [Active]; - PMHx: 01:24 Rheumatoid Arthritis; vc1 - PSHx: 01:24 Hysterectomy; vc1 - Immunization history:: Adult Immunizations up to date, Client reports receiving the 2nd dose of the Covid vaccine. - Family history:: not pertinent. - Social history:: Smoking status: Patient denies any tobacco usage or history of. ROS: 01:51 Constitutional: Negative for fever, chills, and weight loss, Eyes: Negative for injury, dewey pain, redness, and discharge, ENT: Negative for injury, pain, and discharge, Neck: Negative for injury, pain, and swelling, Respiratory: Negative for shortness of breath, cough, wheezing, and pleuritic chest pain, Abdomen/GI: Negative for abdominal pain, nausea, vomiting, diarrhea, and constipation, Back: Negative for injury and pain, : Negative for injury, bleeding, discharge, and swelling, MS/Extremity: Negative for injury and deformity, Skin: Negative for injury, rash, and discoloration, Neuro: Negative for headache, weakness, numbness, tingling, and seizure, Psych: Negative for depression, anxiety, suicide ideation, homicidal ideation, and hallucinations, Allergy/Immunology: Negative for hives, rash, and allergies, Endocrine: Negative for neck swelling, polydipsia, polyuria, polyphagia, and marked weight changes, Hematologic/Lymphatic: Negative for swollen nodes, abnormal bleeding, and unusual bruising. 01:51 Cardiovascular: Positive for chest pain, of the chest. Exam: 01:51 Constitutional: This is a well developed, well nourished patient who is awake, alert, dewey and in no acute distress. Head/Face: Normocephalic, atraumatic. Eyes: Pupils equal round and reactive to light, extra-ocular motions intact. Lids and lashes normal. Conjunctiva and sclera are non-icteric and not injected. Cornea within normal limits. Periorbital areas with no swelling, redness, or edema. ENT: Nares patent. No nasal discharge, no septal abnormalities noted. Tympanic membranes are normal and external auditory canals are clear. Oropharynx with no redness, swelling, or masses, exudates, or evidence of obstruction, uvula midline. Mucous membranes moist. Neck: Trachea midline, no thyromegaly or masses palpated, and no cervical lymphadenopathy. Supple, full range of motion without nuchal rigidity, or vertebral point tenderness. No Meningismus. Chest/axilla: Normal chest wall appearance and motion. Nontender with no deformity. No lesions are appreciated. Cardiovascular: Regular rate and rhythm with a normal S1 and S2. No gallops, murmurs, or rubs. Normal PMI, no JVD. No pulse deficits. Respiratory: Lungs have equal breath sounds bilaterally, clear to auscultation and percussion. No rales, rhonchi or wheezes noted. No increased work of breathing, no retractions or nasal flaring. Abdomen/GI: Soft, non-tender, with normal bowel sounds. No distension or tympany. No guarding or rebound. No evidence of tenderness throughout. Back: No spinal tenderness. No costovertebral tenderness. Full range of motion. Female : Normal external genitalia. Skin: Warm, dry with normal turgor. Normal color with no rashes, no lesions, and no evidence of cellulitis. MS/ Extremity: Pulses equal, no cyanosis. Neurovascular intact. Full, normal range of motion. Neuro: Awake and alert, GCS 15, oriented to person, place, time, and situation. Cranial nerves II-XII grossly intact. Motor strength 5/5 in all extremities. Sensory grossly intact. Cerebellar exam normal. Normal gait. Psych: Awake, alert, with orientation to person, place and time. Behavior, mood, and affect are within normal limits. 01:51 ECG was reviewed by the Attending Physician. 01:51 Musculoskeletal/extremity: DVT Exam: No signs of deep vein thrombosis. no pain, no swelling, no tenderness, negative Homans' sign noted on exam, no appreciated bluish discoloration, no erythema, no increased warmth. Vital Signs: 01:22 BP 135 / 66; Pulse 68; Resp 18; Temp 98; Pulse Ox 97% on R/A; Weight 72.57 kg; Height 5 vc1 ft. 8 in. (172.72 cm); 02:31 BP 127 / 62 LA; ke1 02:32 BP 119 / 61 RA; ke1 01:22 Body Mass Index 24.33 (72.57 kg, 172.72 cm) vc1 MDM: 01:13 Patient medically screened. dewey 01:54 Differential diagnosis: hypertensive crisis, Malignant HTN, CVA, intracerebral dewey hemorrhage. Data reviewed: vital signs, nurses notes, lab test result(s), EKG, radiologic studies, CT scan, plain films. Data interpreted: monitoring and evaluation advisor: rate is 68 beats/min, rhythm is regular, Pulse oximetry: on room air is 97 %. Test interpretation: by ED physician or midlevel provider: ECG, plain radiologic studies. Counseling: I had a detailed discussion with the patient and/or guardian regarding: the historical points, exam findings, and any diagnostic results supporting the discharge/admit diagnosis, lab results, radiology results, the need for further work-up and treatment in the hospital. 08/19 01:14 Order name: Basic Metabolic Panel; Complete Time: 02:20 dewey 08/19 01:14 Order name: CBC with Diff; Complete Time: 02:09 dewey 08/19 01:14 Order name: LFT's; Complete Time: 02:20 dewey 08/19 01:14 Order name: Magnesium; Complete Time: 02:20 dewey 08/19 01:14 Order name: NT PRO-BNP; Complete Time: 02:20 dweey 08/19 01:14 Order name: PT-INR; Complete Time: 02:09 [facility] 08/19 01:14 Order name: Troponin HS; Complete Time: 02:20 [facility] 08/19 01:14 Order name: XRAY Chest (1 view) [facility] 08/19 01:14 Order name: Lipase; Complete Time: 02:20 [facility] 08/19 01:14 Order name: SARS RAPID; Complete Time: 02:16 [facility] 08/19 01:22 Order name: CT Head Brain wo Cont [facility] 08/19 01:51 Order name: CT Aorta for Dissection [facility] 08/19 03:40 Order name: CREATININE WHOLE BLOOD; Complete Time: 03:42 EDMS 08/19 03:51 Order name: Urine Dipstick-Ancillary; Complete Time: 03:54 EDDC 08/19 01:14 Order name: EKG; Complete Time: 01:15 [facility] 08/19 01:14 Order name: Cardiac monitoring; Complete Time: 01:53 [facility] 08/19 01:14 Order name: EKG - Nurse/Tech; Complete Time: 01:53 [facility] 08/19 01:14 Order name: IV Saline Lock; Complete Time: 01:53 [facility] 08/19 01:14 Order name: Labs collected and sent; Complete Time: 01:53 [facility] 08/19 01:14 Order name: O2 Per Protocol; Complete Time: 01:53 [facility] 08/19 01:14 Order name: O2 Sat Monitoring; Complete Time: 01:53 [facility] 08/19 01:51 Order name: Bilateral blood pressure; Complete Time: 02:32 [facility] 08/19 02:37 Order name: CT Head Brain w Cont: venous phase [facility] EC:51 Rate is 66 beats/min. Rhythm is regular. QRS Hardin is Normal. UT interval is normal. QRS dewey interval is normal. QT interval is normal. No Q waves. T waves are Normal. No ST changes noted. Clinical impression: NSR w/ Non-specific ST/T Changes and No evidence of ischemia. Interpreted by me. Reviewed by me. Administered Medications: 01:32 Drug: Lopressor (metoprolol TARTRATE)) 25 mg Route: PO; ke1 02:00 Drug: Aspirin 81 mg Route: PO; ke1 02:15 Drug: NS 0.9% 1000 ml Route: IV; Rate: 125 ml/hr; Site: right forearm; ke1 02:15 Drug: Pepcid (famotidine) 20 mg Route: IVP; Site: right forearm; ke1 Disposition Summary: 08/19/22 02:15 Hospitalization Ordered Hospitalization Status: Observation dewey Provider: Donaldo Whelan cha Location: Telemetry/MedSurg (observation) dewey Condition: Stable dewey Problem: new dewey Symptoms: have improved dewey Bed/Room Type: Standard dewey Room Assignment: 215(08/19/22 03:18) mw Diagnosis - Essential (primary) hypertension dewey - Headache dewey - Chest pain, unspecified - atypical dewey - Rheumatoid arthritis, unspecified dewey Forms: - Medication Reconciliation Form dewey - SBAR form dewey Signatures: Dispatcher [employer] EDMonica Lamb RN RN mw Anderson, Corey, MD MD cha Calcote, Vanessa, RN RN vc1 Carson Parker RN RN ke1 Diane Day PA-C PA-C sb4 Corrections: (The following items were deleted from the chart) 03:18 02:15 dewey mw
[2022-08-19 02:17] LABS: ALT/SGPT 28 U/L (13-56); AST/SGOT 19 U/L (15-37); Albumin 3.6 g/dL (3.4-5.0); Alkaline Phosphatase 70 U/L (45-117); BUN Blood Urea Nitrogen 21 mg/dL (7-18); Bicarbonate 25 mmol/L (21-32); Bilirubin Total 0.2 mg/dL (0.2-1.0); Glomerular Filtration Rate 97 ml/min (=/>90); Glucose Level 116 mg/dL (74-106); Lipase 154 U/L (73-393); NT PRO-BNP 27 pg/mL (<125); Potassium 3.5 mmol/L (3.5-5.1); Protein, Total 6.8 g/dL (6.4-8.2); Sodium Level 142 mmol/L (136-145); Troponin High Sensitivity 6.6 pg/mL (<58.9)
[2022-08-19 02:18] LABS: Bilirubin Direct < 0.1 mg/dL (0-0.2)
[2022-08-19] MEDS ORDERED: FAMOTIDINE 20 MG/2 ML VIAL IV ONE (02:18)
--- NOTE | 2022-08-19 03:47 | P.HP ---
Certification for Inpatient Patient admitted to: Observation With expected LOS: <2 Midnights Patient will require the following post-hospital care: None Practitioner: I am a practitioner with admitting privileges, knowledge of patient current condition, hospital course, and medical plan of care. Services: Services provided to patient in accordance with Admission requirements found in Title 42 Section 412.3 of the Code of Federal Regulations Patient History Date of Service: 08/19/22 Primary Care Provider: Anthony Reason for admission: Chest Pain History of Present Illness: Patient is a 71-year-old female with past medical history of rheumatoid arthritis and hyperlipidemia who presented to the emergency department with complaints of headache, indigestion, and left arm pain that woke her up in the middle the night. She states that she checked her blood pressure and it was 170/82, which is much higher than her usual. She states that she is supposed to have a stress test and echo with Dr. Hathaway this month. Her cardiac work-up today is negative- chest CT dissection protocol, troponin, EKG. she states that her symptoms have mostly resolved and thinks that they are likely secondary to stress. Vital signs are within normal limits. She does have a heart score of 5 and therefore ED provider wishes to admit patient for ACS rule out. Allergies moxifloxacin HCl [From Vigamox] Allergy (Intermediate, Verified 05/26/19 17:14) Shortness of breath NSAIDS (Non-Steroidal Anti-Inflamma Allergy (Intermediate, Verified 05/26/19 17:14) Nausea/Vomiting Home medications list reviewed: Yes Home Medications: Cholecalciferol (Vitamin D3) [Vitamin D3] 2,000 unit PO DAILY 05/26/19 Estrogens,Conjugated [Premarin] 45 gm VG SEECOM 05/26/19 Ezetimibe 10 mg PO DAILY 05/26/19 Fluoxetine HCl [Prozac] 20 mg PO DAILY 05/26/19 Folic Acid 1 mg PO DAILY 05/26/19 Hyaluronate Sodium [Biolon] 10 mg IO SEECOM 05/26/19 Krill Oil/Glen-3/Dha/Epa [Cvs Glen-3 Krill Oil Softgel] 1 each PO DAILY 05/26/19 Lactobacillus Acidophilus [Probiotic Acidophilus] 1 each PO DAILY 05/26/19 Lactobacillus Rhamnosus R0011 [Probiotic Digestive Care] 1 each PO DAILY 05/26/19 Methotrexate Sodium [Methotrexate] 2.5 mg PO SEECOM 05/26/19 Multivit-Min/Iron/Folic/Lutein [Multivitamin Women 50 Plus Tab] 1 tab PO DAILY 05/26/19 Polyethylene Glycol 3350 [Miralax] 17 gm PO DAILY 05/26/19 - Past Medical/Surgical History Diabetic: No -: RA -: Hyperlipidemia -: rt hand sx -: Hysterectomy -: Breast Reduction -: Left Ankle Psychosocial/ Personal History: Patient is . - Family History Mother -: Heart disease Notes: at 39 from [place] - Social History Smoking Status: Former smoker Alcohol use: No CD- Drugs: No Caffeine use: Yes Place of Residence: Home Review of Systems General: Other (Headache) Cardiovascular: Chest Pain Musculoskeletal: Arm Pain Physical Examination - Vital Signs Temperature: 98 F Blood Pressure: 119/61 Pulse: 68 Respirations: 18 Pulse Ox (%): 97 (room air) - Physical Exam General: Alert, In no apparent distress HEENT: Atraumatic, PERRLA, EOMI, Sclerae nonicteric Neck: Supple, 2+ carotid pulse no bruit, No LAD, Without JVD or thyroid abnormality Respiratory: Clear to auscultation bilaterally, Normal air movement Cardiovascular: Regular rate/rhythm, Normal S1 S2 Gastrointestinal: Normal bowel sounds, No tenderness Musculoskeletal: No tenderness Integumentary: No rashes Neurological: Normal gait, Normal speech, Normal strength at 5/5 x4 extr, Normal affect - Studies Laboratory Data (last 24 hrs) 08/19/22 01:43: PT 12.3, INR 1.12 08/19/22 01:43: WBC 8.60, Hgb 12.8, Hct 38.0, Plt Count 222 08/19/22 01:43: Sodium 142, Potassium 3.5, BUN 21 H, Creatinine 0.58, Glucose 116 H, Magnesium 2.0, Total Bilirubin 0.2, AST 19, ALT 28, Alkaline Phosphatase 70, Lipase 154 Assessment and Plan - Problems (Diagnosis) (1) Chest pain Current Visit: Yes Status: Acute Qualifiers: Chest pain type: unspecified Qualified Code(s): R07.9 - Chest pain, unspecified (2) Hyperlipemia Current Visit: Yes Status: Chronic Qualifiers: Hyperlipidemia type: mixed hyperlipidemia Qualified Code(s): E78.2 - Mixed hyperlipidemia (3) Rheumatoid arthritis Current Visit: Yes Status: Chronic Qualifiers: Rheumatoid arthritis location: multiple sites Rheumatoid factor presence: unspecified presence Qualified Code(s): M06.9 - Rheumatoid arthritis, unspecified - Plan Patient is admitted for ACS rule out. Initial troponin negative. Will trend. Check lipid panel and TSH. Aspirin and atorvastatin daily. Echo unavailable on the weekend. Cardiology consult. Monitor on telemetry. Monitor and replete electrolytes per protocol. Reconcile and continue home medications. Lovenox for VTE ppx. Full code Discharge Plan: Home Plan to discharge in: 24 Hours - Advance Directives Does patient have a Living Will: No Does patient have a Durable POA for Healthcare: No - Code Status/Comfort Care Code Status Assessed: Yes Code Status: Full Code Physician Review: Patient Assessed, Agree with Above Assessment and Plan Critical Care: No Time Spent Managing Pts Care (In Minutes): 50
[2022-08-19 03:51] LABS: Urine Blood Negative (Negative); Urine Glucose Negative (Negative); Urine Protein Negative (Negative); Urine pH 5.5 (5.0-7.0)
[2022-08-19] MEDS ORDERED: ONDANSETRON 4 MG/2 ML VIAL IV PRN (04:13)
[2022-08-19] MEDS ORDERED: ACETAMINOPHEN 500 MG TAB PO PRN (04:13)
[2022-08-19 04:36] VITALS: BMI 24.3
[2022-08-19 05:21] LABS: Urine Bacteria None Seen /HPF (<20); Urine Bilirubin NEGATIVE (Negative); Urine Blood Negative (Negative); Urine Clarity Clear (Clear); Urine Color Light-Yellow (Yellow); Urine Glucose NEGATIVE (Negative); Urine Mucus 2+ /HPF (None Seen); Urine Protein TRACE (Negative); Urine Urobilinogen Normal (Normal); Urine pH 5.5 (5.0-7.0)
[2022-08-19 05:23] LABS: Specific Gravity > 1.030 (1.005-1.030)
[2022-08-19 07:18] LABS: Thyroid Stimulating Hormone 1.97 uIU/mL (0.358-3.740); Troponin High Sensitivity 7.3 pg/mL (<58.9)
[2022-08-19] MEDS: ENOXAPARIN 40 MG/0.4 ML SQ SCH (08:37)
[2022-08-19] MEDS ORDERED: POTASSIUM CL SA 10 MEQ TAB PO ONE (09:00)
[2022-08-19] MEDS ORDERED: METHOTREXATE SODIUM 2.5 MG PO SCH (10:30)
--- NOTE | 2022-08-19 13:32 | P.PN ---
Subjective Date of Service: 08/19/22 Primary Care Provider: Anthony Chief Complaint: Chest Pain Subjective: Improving GENARO HAD L ARM PAIN AND SPLITTING HEADACHE WITH UPPER BACK PAIN. SHE CAME TO ER, GOT CT SCAN DONE ,DISSECTION RULED OUT. EKG FROM THE ER IS NOT IN THE CHART. I ASKED THEM TO BRING IT TO THE FLOOR. TROP IS NEGATIVE. SHE NOW HAS LOW GRADE FEVER ALSO. SHE HAS NO ABDOMEN PAIN. HER PAIN IS GONE AFTER MEDS FROM ER, ASPIRIN AND PAIN MEDS. DR. HERMOSILLO HAS BEEN CALLED. Review of Systems 10-point ROS is otherwise unremarkable Physical Examination - Vital Signs Temperature: 97.3 F Blood Pressure: 113/57 Pulse: 66 Respirations: 16 Pulse Ox (%): 96 - Physical Exam General: In no apparent distress, Oriented x3 HEENT: Atraumatic, PERRLA, EOMI Neck: Supple, JVD not distended Respiratory: Clear to auscultation bilaterally, Normal air movement Cardiovascular: Regular rate/rhythm, Normal S1 S2 Gastrointestinal: Normal bowel sounds, No tenderness Musculoskeletal: No tenderness Integumentary: No rashes Neurological: Normal speech, Normal tone, Normal affect Lymphatics: No axilla or inguinal lymphadenopathy - Studies Laboratory Data (last 24 hrs) 08/19/22 01:43: PT 12.3, INR 1.12 08/19/22 01:43: WBC 8.60, Hgb 12.8, Hct 38.0, Plt Count 222 08/19/22 01:43: Sodium 142, Potassium 3.5, BUN 21 H, Creatinine 0.58, Glucose 116 H, Magnesium 2.0, Total Bilirubin 0.2, AST 19, ALT 28, Alkaline Phosphatase 70, Lipase 154 Medications List Reviewed: Yes Assessment And Plan - Current Problems (Diagnosis) (1) Arm pain, anterior Current Visit: Yes Status: Acute Plan: MAY NOT BE CARDIAC MAY NEED CATH TO CLARIFY THERE IS SURGERY COMING SOON FOR L HAND. PROGNOSIS FAIR. Qualifiers: Laterality: left Qualified Code(s): M79.602 - Pain in left arm (2) Back pain Current Visit: Yes Status: Acute Plan: DISSECTION RULED OUT. (3) Fever Current Visit: Yes Status: Acute Plan: LOW GRADE WITH BACK PAIN. DO UA AND CS GB SONOGRAM. Physician Review: Patient Assessed, Agree with Above Assessment and Plan
--- NOTE | 2022-08-19 15:35 | CON ---
Date of Consultation: 08/19/2022 Reason For Consultation: Chest pain. History Of Present Illness: A 71-year-old female, known patient of mine in the office, has a history of rheumatoid arthritis, dyslipidemia, presented with complaints of headache and left arm pain, left shoulder pain. There was no primo chest pain. Blood pressure was elevated at 170/80, which is unus ual for her. Workup was negative including cardiac enzymes and CTA of the lungs. Past Medical History: As outlined above in the HPI. Medications: Refer to reconciliation sheet for detailed list. Allergies: FLUOROQUINOLONE AND NSAIDS. Family History: No premature coronary artery disease or cancer. Social History: She does not smoke or drink. Does not use drugs. Review of Systems: All systems reviewed and they were negative except what mentioned in HPI. Physical Examination: Vital Signs: Reviewed. Head and Neck: Pupils are equal, reactive to light. Intact eye movements. No JVD. No cervical lym phadenopathy. Neck is supple. Thyroid is not enlarged. Lungs: Clear to auscultation bilaterally. No rhonchi, wheezing, or crackles. No accessory muscle u se. Heart: Regular rate and rhythm. No extra sounds. Abdomen: Soft, nontender. Bowel sounds positive. No organomegaly. No masses or hernia. No rigidi ty or rebound. Extremities: No edema, clubbing, or cyanosis. Intact pulses. Skin: No rash. Neurologic: Alert, awake, oriented x3. No acute focal deficits appreciated. Lymph Nodes: No cervical or axillary lymphadenopathy. Investigations: CT dissection was negative. Troponins are negative. BUN is 21, creatinine 0.58, an d hemoglobin is 12.8. Assessment And Recommendations: 1.Chest discomfort. It is atypical. It is more of an arm pain. Cardiac enzymes are negative. CT dissection is negative. From Cardiology standpoint, no further cardiac workup is recommended as an i npatient and the patient can be released from Cardiology standpoint. She already has a stress test s cheduled and an echocardiogram as an outpatient to keep that as scheduled and no further inpatient wo rkup is recommended. 2.Hypertension. Blood pressure is better. Continue current medications. SR/MODL Voice ID: [id number] Report ID: [id number]
--- NOTE | 2022-08-19 15:49 | EKG ---
Test Date: 2022-08-19 Test Time: 01:34:16 Planer Tailer: KALLIE MEASUREMENT RESULTS: Intervals: Rate: 66 MD: 134 QRSD: 86 QT: 470 QTc: 492 [place]: P: 38 MD: 134 QRS: 61 T: 127 INTERPRETIVE STATEMENTS: Normal sinus rhythm Nonspecific ST abnormality Abnormal QRS-T angle, consider primary T wave abnormality Prolonged QT Abnormal ECG Compared to ECG 05/26/2019 12:13:37 ST (T wave) deviation now present T-wave abnormality now present Prolonged QT interval now present Electronically Signed On 08-19-22 15:48:51 THORACIC MEDICINE PHYSICIAN by Bryan Hathaway
[2022-08-19] MEDS ORDERED: DIPHENHYDRAMINE 50 MG/ML VIAL IV ONE (16:00)
[2022-08-19] MEDS ORDERED: HYDROCORTISONE SUC 100 MG INJ IV ONE (16:00)
[2022-08-19] MEDS: NA CHLORIDE 0.9% 1,000 ML IV SCH (16:05)
--- NOTE | 2022-08-19 19:53 | RAD REPORT ---
EXAM DESCRIPTION: US - Abdomen Exam Complete - 08/19/2022 7:32 pm CLINICAL HISTORY: FEVER, BACK PAIN. LOOK AT GB, KIDNEYS ETC. COMPARISON: Abdomen Pelvis W Contrast dated 05/26/2019; Angio Aorta For Dissection dated 2 FINDINGS: Gallbladder size is normal. A small 8 millimeter mobile gallstone is seen. No other stones or sludge. No wall thickening or pericholecystic fluid. Common bile duct is normal with no common du ct stone identified. Liver and spleen are normal size. No focal lesions. Echogenicity of the liver does suggest a mild fat ty infiltration. No portal vein abnormality. The pancreas is grossly normal but partially obscured by bowel. No pancreatic or peripancreatic abnor mality seen on PE earlier CT study. No hydronephrosis or suspicious mass in either kidney. Aorta and IVC show no significant finding. No ascites or bulky lymphadenopathy. IMPRESSION: Small 8 mm gallstone is seen. No other gallbladder or biliary tree abnormality. Mild fatty infiltration of the liver is suspected. No focal liver abnormality seen.
[2022-08-20] MEDS ORDERED: DIPHENHYDRAMINE 50 MG/ML VIAL IV ONE (02:02)
[2022-08-20] MEDS: NA CHLORIDE 0.9% 1,000 ML IV SCH (06:26)
[2022-08-20] MEDS ORDERED: dexAMETHasone 4 MG/ML VIAL IV ONE (06:44)
[2022-08-20] MEDS ORDERED: hydrOXYzine HCL 25 MG TAB PO PRN (08:03)
[2022-08-20] MEDS ORDERED: NA CHLORIDE 0.9% 1,000 ML IV SCH (08:19)
[2022-08-20] MEDS: FLUOXETINE 20 MG CAP PO SCH (08:29)
[2022-08-20] MEDS: ENOXAPARIN 40 MG/0.4 ML SQ SCH (08:29)
[2022-08-20 08:40] VITALS: O2SAT 97
[2022-08-20] MEDS: dexAMETHasone 4 MG/ML VIAL IV SCH ×2 (11:27→17:21)
--- NOTE | 2022-08-20 13:06 | RAD REPORT ---
EXAM DESCRIPTION: CT - Head Brain Wo Cont - 08/19/2022 6:09 am ADDENDUM #1 Addendum: Dr. Sifuentes discussed these findings and recommendations with Dr. Castellanos via telephone at approximate ly 03:32 hours EST on 08/19/2022. Electronically signed by: Cody Sifuentes MD 08/19/2022 2:35 AM CHUTE MAN End of Addendum EXAM DESCRIPTION: CT Head Without Intravenous Contrast CLINICAL HISTORY: The patient is 71 years old and is Female; Headache, new or worsening BRHS MA IN TECHNIQUE: Axial computed tomography images of the head/brain without intravenous contrast. Sagitt al and coronal reformatted images were created and reviewed. This CT exam was performed using one o r more of the following dose reduction techniques: automated exposure control, adjustment of the mA and/or kV according to patient size, and/or use of iterative reconstruction technique. COMPARISON: No relevant prior studies available. FINDINGS: BRAIN: No extra-axial fluid collection. No intracranial hemorrhage. No transtentorial herniation. No focal crook-white matter differentiation abnormality. Mild to moderate global cerebral atrophy with commensurate sulcal and ventricular enlargement, not gr eater than expected for patient age. MIDLINE SHIFT: No midline shift. VENTRICLES: See above. BONES/JOINTS: No fracture of the calvarium or visualized facial bones. SOFT TISSUES: Unremarkable. VASCULATURE: Asymmetric hyperattenuation and enlargement of the right transverse sinus versus the left (axial images 8-11; coronal images 43-45). SINUSES: Small left maxillary sinus retention cyst. MASTOID AIR CELLS: Unremarkable as visualized. No mastoid effusion. IMPRESSION: 1. Asymmetric hyperattenuation and enlargement of the right transverse sinus versus th e left (axial images 8-11; coronal images 43-45). Appearance is nonspecific and may be within normal limits or appear exaggerated secondary to dehydration. However, this appearance could also reflect a transverse venous thrombosis, though there are no secondary signs to suggest venous occlusion (no alecia graphic white matter edema or crook-white matter appreciation abnormalities). Consider further charact erization by venous phase head CT or noncontrasted brain MRV if there is high clinical suspicion for possible intracranial venous thrombus. 2. Otherwise, chronic and senescent changes with no acute intracranial abnormality. Electronically signed by: Cody Sifuentes MD 08/19/2022 2:27 AM CHUTE MAN Due to temporary technical issues with the PACS/Fluency reporting system, reports are being signed by the in house radiologists without review as a courtesy to insure prompt reporting. The interpreting radiologist is fully responsible for the content of the report.
[2022-08-20] MEDS: POLYETHYL GLY 3350 17 GM/DOSE PO SCH (13:09)
--- NOTE | 2022-08-20 13:22 | RAD REPORT ---
EXAM DESCRIPTION: CT - Angio Aorta For Dissection - 08/19/2022 6:09 am CLINICAL HISTORY: The patient is 71 years old and is Female; chest pain with arm numbness TECHNIQUE: Axial computed tomographic angiography images of the chest, abdomen and pelvis with intra venous contrast. Sagittal and coronal reformatted images were created and reviewed. This CT exam was performed using one or more of the following dose reduction techniques: automated exposure cont rol, adjustment of the mA and/or kV according to patient size, and/or use of iterative reconstruction technique. MIP reconstructed images were created and reviewed. COMPARISON: 05/26/2019 CT abdomen pelvis with contrast FINDINGS: VASCULATURE: AORTA: Mild thoracic and moderate abdominal aortic calcified atherosclerosis without aneurysmal di latation or dissection. PULMONARY ARTERIES: Unremarkable as visualized. No pulmonary embolism is identified. GREAT VESSELS OF AORTIC ARCH: No acute findings. No dissection. No arterial occlusion or signi ficant stenosis. CELIAC TRUNK AND MESENTERIC ARTERIES: No acute findings. No occlusion or significant stenosis. RENAL ARTERIES: No acute findings. No occlusion or significant stenosis. ILIAC ARTERIES: No acute findings. No occlusion or significant stenosis. CHEST: LUNGS: Trace right apical scarring. PLEURAL SPACE: Unremarkable. No significant effusion. No pneumothorax. HEART: Multivessel coronary artery calcifications. No significant pericardial effusion. MEDIASTINUM: Small hiatal hernia. ABDOMEN: LIVER: Unremarkable. No mass. GALLBLADDER AND BILE DUCTS: Unremarkable. No calcified stones. No ductal dilation. PANCREAS: Unremarkable. No ductal dilation. No mass. SPLEEN: Unremarkable. No splenomegaly. ADRENALS: Unremarkable. No mass. KIDNEYS AND URETERS: New 2 cm left inferior pole renal cyst with slight peripheral enhancement. No hydronephrosis. No solid mass. STOMACH AND BOWEL: Moderate sigmoid diverticulosis without evidence of acute diverticulitis. No obstruction. PELVIS: APPENDIX: No findings to suggest acute appendicitis. BLADDER: Unremarkable. No mass. REPRODUCTIVE: Presumed hysterectomy versus marked atrophy of the uterus. CHEST, ABDOMEN and PELVIS: INTRAPERITONEAL SPACE: Unremarkable. No significant fluid collection. No free air. BONES/JOINTS: Mild multilevel spondylosis. No acute osseous abnormality. No dislocation. SOFT TISSUES: Small fat-containing bilateral inguinal hernias with tiny fat-containing umbilical h ernia. LYMPH NODES: Unremarkable. No enlarged lymph nodes. IMPRESSION: 1. No acute abnormality of the chest, abdomen, or pelvis. Specifically, no findings to suggest aortic aneurysm or dissection. 2. New 2 cm left inferior pole renal cyst with slight peripheral enhancement, compatible with a Rick niak 2F renal cyst. Recommend follow-up evaluation with nonemergent renal ultrasound within 3-6 month s. Electronically signed by: Cody Sifuentes MD 08/19/2022 2:57 AM DIGITAL BUSINESS ANALYST Due to temporary technical issues with the PACS/Fluency reporting system, reports are being signed by the in house radiologists without review as a courtesy to insure prompt reporting. The interpreting radiologist is fully responsible for the content of the report.
--- NOTE | 2022-08-20 13:25 | RAD REPORT ---
EXAM DESCRIPTION: RAD - Chest Single View - 08/19/2022 2:40 am CLINICAL HISTORY: The patient is 71 years old and is Female; CHEST PAIN TECHNIQUE: Frontal view of the chest. COMPARISON: 05/26/2019 chest radiograph FINDINGS: LUNGS: Small bandlike focus in the lateral lung base favors atelectasis versus a prominen t lung marking. No focal consolidation. Left suprahilar calcified granuloma. PLEURAL SPACE: Unremarkable. No pleural effusion. No pneumothorax. HEART: Stable cardiomediastinal silhouette. MEDIASTINUM: See above. Aortic arch calcification. BONES/JOINTS: Unremarkable. IMPRESSION: No acute findings in the chest. Electronically signed by: Cody Sifuentes MD 08/19/2022 6:23 AM INSULATION MACHINE OPERATOR Due to temporary technical issues with the PACS/Fluency reporting system, reports are being signed by the in house radiologists without review as a courtesy to insure prompt reporting. The interpreting radiologist is fully responsible for the content of the report.
--- NOTE | 2022-08-20 13:40 | RAD REPORT ---
EXAM DESCRIPTION: CT - Head Brain W Cont - 08/19/2022 6:10 am CLINICAL HISTORY: The patient is 71 years old and is Female; Headache, new or worsening BRHS MA IN TECHNIQUE: Axial computed tomography images of the head/brain with intravenous contrast. Sagittal and coronal reformatted images were created and reviewed. This CT exam was performed using one or m ore of the following dose reduction techniques: automated exposure control, adjustment of the mA an d/or kV according to patient size, and/or use of iterative reconstruction technique. COMPARISON: 08/19/2022 CT head without contrast FINDINGS: BRAIN: No extra-axial fluid collection. No intracranial hemorrhage. No transtentorial herniation. No focal crook-white matter differentiation abnormality. Mild to moderate global cerebral atrophy with commensurate sulcal and ventricular enlargement, not gr eater than expected for patient age. MIDLINE SHIFT: No midline shift. VENTRICLES: See above BONES/JOINTS: No fracture of the calvarium or visualized facial bones. SOFT TISSUES: Unremarkable. VASCULATURE: No abnormal enhancing mass or lesion. No abnormal intracranial venous filling defects to suggest venous thrombus. SINUSES: Small left maxillary sinus retention cyst. No acute sinusitis. MASTOID AIR CELLS: Unremarkable as visualized. No mastoid effusion. IMPRESSION: 1. No acute intracranial abnormality. Specifically, no venous filling defect to sugges t intracranial venous thrombus. 2. Chronic and senescent changes, not greater than expected for patient age. Electronically signed by: Cody Sifuentes MD 08/19/2022 3:26 AM PROCESS CONTROL OPERATOR Due to temporary technical issues with the PACS/Fluency reporting system, reports are being signed by the in house radiologists without review as a courtesy to insure prompt reporting. The interpreting radiologist is fully responsible for the content of the report.
--- NOTE | 2022-08-20 17:56 | P.PN ---
Subjective Date of Service: 08/20/22 Primary Care Provider: Anthony Chief Complaint: SWELLING OF FACE Subjective: Worsening GENARO HAD L ARM PAIN AND SPLITTING HEADACHE WITH UPPER BACK PAIN. SHE CAME TO ER, GOT CT SCAN DONE ,DISSECTION RULED OUT. EKG FROM THE ER IS NOT IN THE CHART. I ASKED THEM TO BRING IT TO THE FLOOR. TROP IS NEGATIVE. SHE NOW HAS LOW GRADE FEVER ALSO. SHE HAS NO ABDOMEN PAIN. HER PAIN IS GONE AFTER MEDS FROM ER, ASPIRIN AND PAIN MEDS. DR. HERMOSILLO HAS BEEN CALLED. THE ONLY NEW MEDICINE SHE HAD WAS IODINE FOR CT SCAN. SHE HAD LATE REACTION. SHE HAD SEVERE SWELLING OF FACE BUT NO DYSPNEA. I STARTED HER ON IV STEROID AND ATARAX. I CHECKED THIS PM AND SHE IS DOING LOT BETTER NOW. I WILL HOLD DC UNTIL AM FACE IS STILL SWELLING MODERATELY. Review of Systems 10-point ROS is otherwise unremarkable ENT: As per HPI Physical Examination - Vital Signs Temperature: 98.0 F Blood Pressure: 117/56 Pulse: 74 Respirations: 16 Pulse Ox (%): 91 - Physical Exam General: Oriented x3, Mild distress, Moderate distress HEENT: Atraumatic, PERRLA, Other (DIFFUSE FACIAL SWELLING AND BACK RASH, BLANCHES. ), EOMI Neck: Supple, JVD not distended Respiratory: Clear to auscultation bilaterally, Normal air movement Cardiovascular: Regular rate/rhythm, Normal S1 S2 Gastrointestinal: Normal bowel sounds, No tenderness Musculoskeletal: No tenderness Integumentary: No rashes Neurological: Normal speech, Normal tone, Normal affect Lymphatics: No axilla or inguinal lymphadenopathy - Studies Medications List Reviewed: Yes Assessment And Plan - Current Problems (Diagnosis) (1) Arm pain, anterior Current Visit: Yes Status: Acute Plan: MAY NOT BE CARDIAC MAY NEED CATH TO CLARIFY THERE IS SURGERY COMING SOON FOR L HAND. PROGNOSIS FAIR. Qualifiers: Laterality: left Qualified Code(s): M79.602 - Pain in left arm (2) Back pain Current Visit: Yes Status: Acute Plan: DISSECTION RULED OUT. (3) Fever Current Visit: Yes Status: Acute Plan: LOW GRADE WITH BACK PAIN. DO UA AND CS GB SONOGRAM. (4) Adverse reaction to iodine Current Visit: Yes Status: Acute Plan: IV STEROIDS. ATARAX PRN FOR RASH. STABLE. Physician Review: Patient Assessed, Agree with Above Assessment and Plan
[2022-08-21] MEDS: dexAMETHasone 4 MG/ML VIAL IV SCH ×2 (00:05→06:00)
[2022-08-21 06:29] VITALS: BP 126/58; TEMP 97.9
[2022-08-21] MEDS: ENOXAPARIN 40 MG/0.4 ML SQ SCH (08:11)
[2022-08-21] MEDS: FLUOXETINE 20 MG CAP PO SCH (08:11)
[2022-08-21] MEDS: POLYETHYL GLY 3350 17 GM/DOSE PO SCH (08:12)
[2022-08-21] MEDS ORDERED: POLYETHYL GLY 3350 17 GM/DOSE PO SCH (09:00)
--- NOTE | 2022-08-21 12:50 | P.DS ---
Admission Date: 08/19/22 Discharge Date: 08/21/22 Primary Care Provider: Anthony Disposition: ROUTINE DISCHARGE Discharge Condition: FAIR Reason for Admission: SWELLING OF FACE - Problems (1) Arm pain, anterior Status: Acute Qualifiers: Laterality: left Qualified Code(s): M79.602 - Pain in left arm (2) Back pain Status: Acute (3) Fever Status: Acute (4) Adverse reaction to iodine Status: Acute Hospital Course: GENARO HAD CHEST PAIN MORE OR ARM PAIN AND BACK PAIN. RULED OUT FOR GA. SHE HAD CT DISSECTION PROTOCOL AND HAD LATE REACTION OF SWELLING OF FACE AND RASH. I HAD TO HOLD HER ONE MORE DAY TO TREAT THE SEVERE FACIAL EDEMA SHE DEVELOPED. SHE IS BETTER AFTER IV DEXAMETHASONE AND ORAL ATARAX. SHE HAS NO RHONCHI. SHE IS STABLE TO GO HOME . I CALLED IN STEROIDS AND ATARAX FROM OFFICE. FU IN ONE WEEK. SHE WILL GET OUTPATIENT S TEST. Vital Signs/Physical Exam: Temp Pulse Resp BP Pulse Ox 97.9 F 81 14 126/58 L 96 08/21/22 04:00 08/21/22 04:00 08/21/22 04:00 08/21/22 04:00 08/21/22 04:00 Laboratory Data at Discharge: WBC 8.60 K/uL (4.3-10.9) 08/19/22 01:43 Hgb 12.8 g/dL (12.0-15.0) 08/19/22 01:43 Hct 38.0 % (36.0-45.0) 08/19/22 01:43 Plt Count 222 K/uL (152-406) 08/19/22 01:43 PT 12.3 SECONDS (9.5-12.5) 08/19/22 01:43 INR 1.12 08/19/22 01:43 Sodium 142 mmol/L (136-145) 08/19/22 01:43 Potassium 3.5 mmol/L (3.5-5.1) 08/19/22 01:43 BUN 21 mg/dL (7-18) H 08/19/22 01:43 Creatinine 0.58 mg/dL (0.55-1.02) 08/19/22 01:43 Glucose 116 mg/dL (74-106) H 08/19/22 01:43 Magnesium 2.0 mg/dL (1.6-2.4) 08/19/22 01:43 Total Bilirubin 0.2 mg/dL (0.2-1.0) 08/19/22 01:43 AST 19 U/L (15-37) 08/19/22 01:43 ALT 28 U/L (13-56) 08/19/22 01:43 Alkaline Phosphatase 70 U/L (45-117) 08/19/22 01:43 Triglycerides 77 mg/dL (<150) 08/19/22 06:06 Cholesterol 133 mg/dL (<200) 08/19/22 06:06 HDL Cholesterol 46 mg/dL (40-60) 08/19/22 06:06 Cholesterol/HDL Ratio 2.89 08/19/22 06:06 Lipase 154 U/L (73-393) 08/19/22 01:43 Home Medications: Cholecalciferol (Vitamin D3) [Vitamin D3] 2,000 unit PO DAILY 05/26/19 Estrogens,Conjugated [Premarin] 45 gm VG SEECOM 05/26/19 Ezetimibe 10 mg PO BEDTIME 05/26/19 Fluoxetine HCl [Prozac] 20 mg PO DAILY 05/26/19 Folic Acid 1 mg PO DAILY 05/26/19 Krill Oil/Mobile-3/Dha/Epa [Cvs Mobile-3 Krill Oil Softgel] 1 each PO DAILY 05/26/19 Methotrexate Sodium [Methotrexate] 2.5 mg PO SEECOM 05/26/19 Multivit-Min/Iron/Folic/Lutein [Multivitamin Women 50 Plus Tab] 1 tab PO DAILY 05/26/19 Polyethylene Glycol 3350 [Miralax] 17 gm PO DAILY 05/26/19 Followup: Vinnie Cruz MD [Primary Care Provider] - (Follow up in 1 week )
--- NOTE | 2022-08-21 17:01 | PN ---
Date of Progress Note: 08/21/2022 Subjective: Seen by bedside. No cardiac complaints. Review of Systems: No chest pain, shortness of breath, orthopnea, cough, nausea, vomiting, diarrhea. All other systems reviewed and they were negative. Physical Examination: Vital Signs: Reviewed. Head and Neck: Pupils are equal, reactive to light. Intact eye movements. No JVD. No cervical lym phadenopathy. Neck is supple. Thyroid is not enlarged. Lungs: Clear to auscultation bilaterally. No rhonchi, wheezing, or crackles. No accessory muscle u se. Heart: Regular rate and rhythm. No extra sounds. Abdomen: Soft, nontender. Bowel sounds positive. No organomegaly. No masses or hernia. No rigidi ty or rebound. Extremities: No edema, clubbing, or cyanosis. Intact pulses. Skin: No rash. Neurologic: Alert, awake, oriented x3. No acute focal deficits appreciated. Investigations: Labs reviewed. Assessment And Recommendations: 1.Pain to the left upper extremity. This is likely noncardiac. We will plan for outpatient cardiac evaluation that is already set up. 2.Allergic reaction to iodine. The patient was informed to report this is an allergy before getting any tests in the future. The patient can be released from Cardiology standpoint and follow up as an outpatient, as scheduled. /CHELO Voice ID: [id number] Report ID: [id number]
[2022-08-25] MEDS ORDERED: METHOTREXATE 2.5 MG TAB PO SCH (09:00)
== END 2022-08-21 08:57 | disposition home or self-care (01) ==
LOC: ER 01:01 → ERHOLD 03:41 → 2ND 03:54
PROVIDERS: ADMIT Internal Medicine; ATTEND Internal Medicine
DX: M79.602 Pain in left arm (principal); R50.9 Fever, unspecified; R60.9 Edema, unspecified; M06.9 Rheumatoid arthritis, unspecified; E78.5 Hyperlipidemia, unspecified; M54.9 Dorsalgia, unspecified; I10 Essential (primary) hypertension; T88.7XXA Unspecified adverse effect of drug or medicament, initial encounter; T49.0X5A Adverse effect of local antifungal, anti-infective and anti-inflammatory drugs, initial encounter; Y92.238 Other place in hospital as the place of occurrence of the external cause; Z20.822 Contact with and (suspected) exposure to COVID-19; Z88.8 Allergy status to other drugs, medicaments and biological substances
CPT/HCPCS: 93005; 85025; 81001; 80048; 36415; 83735; 85610; 80061; 82565; 80076; 84443; 81003; 84484 ×2; 83690; 83880; 70460; 70450; 71275; 74175; 71045; 76700; 96374; 99285; 87811; Q9967 ×2; J1100 ×5; J1200 ×2; J1650 ×3; J7030 ×4; J1720

== ENCOUNTER → 2023-11-23 | Emergency (ER) | payer OTHER, BC ==
[~2023-11-23] MED LIST changes: -ATROPINE SULF 1 MG/10 ML SYR IV ONE; +DIPHENHYDRAMINE 50 MG/ML VIAL ONE; +FAMOTIDINE 20 MG/2 ML VIAL IV ONE; -HEPA 1000U/500MLS 2,000 UNIT/1,000 ML BAG IV ONE; -HEPARIN 5000 UNIT/ML 1 ML VIAL ONE; -LIDOCAINE 1% 20 ML MDV ONE; -NA CHLORIDE 0.9% 0 ML ONE; -NICARDIPINE HCL 25 MG/10 ML IV ONE; -NITROGLYCERIN/D5W 25 MG/250 ML BTL IV ONE
[2023-11-23 21:49] LABS: Absolute Eosinophils 0.2 K/uL (0-0.5); Absolute Lymphocytes (CBC) 2.9 K/uL (0.7-4.9); Absolute Monocytes 1.2 K/uL (0.1-1.3); Absolute Neutrophil 6.2 K/uL (1.8-8.0); Basophils % 0.4 % (0-1.3); Eosinophils % 1.7 % (0-4.4); Hematocrit 31.2 % (36.0-45.0); Hemoglobin 10.5 g/dL (12.0-15.0); Lymphocytes % 27.6 % (15.3-44.8); MCH 30.1 pg (27.0-35.0); MCHC 33.7 g/dL (32.0-36.0); MCV 89.3 fL (80-100); MPV 9.2 fL (7.6-11.3); Monocytes % 11.4 % (3.3-12.3); Neutrophils % 58.9 % (41.7-73.7); Platelets 278 thou/uL (152-406); Red Cell Distribution Width 13.4 % (12.1-15.2)
[2023-11-23 21:57] LABS: Albumin/Globulin Ratio 0.8 (1.1-1.8); Anion Gap 8.8 mEq/L (5.0-15.0); Bilirubin Total 0.2 mg/dL (0.2-1.0); Globulin 3.8 g/dL (2.3-3.5); Potassium 3.8 mEq/L (3.5-5.1); Protein, Total 6.8 g/dL (6.4-8.2)
--- NOTE | 2023-11-23 22:28 | RAD REPORT ---
EXAM DESCRIPTION: CTAbdomen Pelvis W Contrast - 11/23/2023 10:08 pm CLINICAL HISTORY: rectal bleeding, will premedicate COMPARISON: Abdomen Pelvis W Contrast dated 05/26/2019; Angio Aorta For Dissection dated 2 TECHNIQUE: CT of the abdomen and pelvis was performed. All CT scans are performed using dose optimization technique as appropriate and may include automated exposure control or mA/KV adjustment according to patient size. FINDINGS: Lower chest: Small hiatal hernia. Liver: No acute abnormality or suspicious lesions. Biliary: No biliary ductal dilatation. Stomach: No significant focal abnormality. Duodenum: No significant focal abnormality. Pancreas: See peritoneum below . Complex cystic structure at the pancreatic tail along the left anter ior pararenal space . No pancreatic ductal dilatation. No peripancreatic inflammatory changes. Spleen: No significant abnormality. Adrenal: No suspicious lesions. Kidney/ureter: No hydronephrosis. No renal calculi. Complex 1.8 cm lesion at the anterior lip of the left lower pole kidney has been present since at least 05/26/2019 and is benign. It is in close appro ximation to the enhancing collection along the anterior left renal fascia. Nonobstructive nephrolithi asis. Retroperitoneum: No retroperitoneal adenopathy.Inflammatory changes and peripheral soft tissue associ ated with a cystic structure at the tip of the pancreatic tail and intimately associated with the lef t anterior renal fascia. This measures 4.1 x 3.6 cm. It does not appear to be associated with the adj acent colon or small bowel. Vascular: No aneurysm. Atherosclerosis . Bowel: No significant focal abnormality. Peritoneum: No ascites or free air. Fat containing inguinal hernias. Bladder: Grossly unremarkable. Reproductive: No adnexal masses. Hysterectomy. Bones: No acute fracture. Multilevel degenerative changes are present in the spine. Other: n/a IMPRESSION: Thick walled cystic and enhancing structure near the pancreatic tail and along the left anterior renal fascia is new since 08/19/22. It could be related to prior pancreatitis and represent a pseudocyst. It contacts a previously identified left renal cyst which now appears to have some wall enhancement and complexity. It is unlikely related to the patient's current symptoms (rectal bleedin g). If the patient has had history of pancreatitis since 2021, follow-up imaging could be obtained in 3-6 months. If no history of pancreatitis and no other suspected etiology, could consider CT guided biopsy/aspiration or further evaluation with MRI.
--- NOTE | 2023-11-23 23:04 | ER ---
Nurse's Notes [facility] Name: Aminata Francisco Age: 73 yrs Sex: Female : 1950 Arrival Date: 11/23/2023 Time: 20:43 Bed 7 Private MD: Diagnosis: Rectal bleeding Presentation: 11/22 20:54 Chief complaint: Patient states: bleeding from rectum starting today at 2015; has had km8 hx of this in the past; was told to come to the ER if bleeding happens again. Coronavirus screen: Client denies travel out of the [place] in the last 14 days. Ebola Screen: No symptoms or risks identified at this time. Initial Sepsis Screen: Does the patient meet any 2 criteria? No. Patient's initial sepsis screen is negative. Does the patient have a suspected source of infection? No. Patient's initial sepsis screen is negative. Risk Assessment: Do you want to hurt yourself or someone else? Patient reports no desire to harm self or others. Onset of symptoms was November 23, 2023 at 20:15. 20:54 Method Of Arrival: Ambulatory km8 20:54 Acuity: FLORESITA 3 km8 Triage Assessment: 20:54 General: Appears in no apparent distress. comfortable, Behavior is calm, cooperative, km8 appropriate for age. Pain: Denies pain. EENT: No signs and/or symptoms were reported regarding the EENT system. Neuro: Level of Consciousness is awake, alert, obeys commands, Oriented to person, place, time, situation. Cardiovascular: Denies chest pain, shortness of breath, Patient's skin is warm and dry. Respiratory: Airway is patent Respiratory effort is even, unlabored, Respiratory pattern is regular, symmetrical. GI: Reports rectal bleeding, Patient currently denies pain. : No signs and/or symptoms were reported regarding the genitourinary system. Derm: No signs and/or symptoms reported regarding the dermatologic system. Skin is intact, is healthy with good turgor, Skin is dry, Skin is pink, warm \T\ dry. normal, Skin temperature is warm. Musculoskeletal: No signs and/or symptoms reported regarding the musculoskeletal system. Range of motion: intact in all extremities. Historical: - Allergies: 22:02 NSAIDS; tm6 - PMHx: 22:02 Rheumatoid Arthritis; tm6 - PSHx: 22:02 hysterectomy; tm6 - Immunization history:: Client reports receiving the 2nd dose of the Covid vaccine, Flu vaccine is up to date. - Social history:: Smoking status: Patient denies any tobacco usage or history of. Patient/guardian denies using alcohol, street drugs. - Family history:: not pertinent. Screenin:02 [facility] ED Fall Risk Assessment (Adult) History of falling in the last 3 months, tm6 including since admission No falls in past 3 months (0 pts) Confusion or Disorientation No (0 pts) Intoxicated or Sedated No (0 pts) Impaired Gait No (0 pts) Mobility Assist Device Used No (0 pt) Altered Elimination No (0 pt) Score/Fall Risk Level 0 - 2 = Low Risk Oriented to surroundings, Maintained a safe environment. Abuse screen: Denies threats or abuse. Denies injuries from another. Nutritional screening: No deficits noted. Tuberculosis screening: No symptoms or risk factors identified. Assessment: 22:00 General: Appears in no apparent distress. Behavior is calm, cooperative. Pain: Denies tm6 pain. Neuro: Level of Consciousness is awake, alert, obeys commands, Oriented to person, place, time, situation. Cardiovascular: Capillary refill < 3 seconds Patient's skin is warm and dry. Respiratory: Airway is patent Respiratory effort is even, unlabored, Respiratory pattern is regular, symmetrical. GI: Abdomen is flat, non-distended, Reports bloody stool. : No signs and/or symptoms were reported regarding the genitourinary system. EENT: No signs and/or symptoms were reported regarding the EENT system. Derm: No signs and/or symptoms reported regarding the dermatologic system. Musculoskeletal: No signs and/or symptoms reported regarding the musculoskeletal system. 23:31 Reassessment: Patient appears in no apparent distress at this time. Patient and/or tm6 family updated on plan of care and expected duration. Pain level reassessed. Patient is alert, oriented x 3, equal unlabored respirations, skin warm/dry/pink. Vital Signs: 20:54 BP 139 / 65; Pulse 93; Resp 16; Temp 99.1(TE); Pulse Ox 97% on R/A; Weight 72.57 kg km8 (R); Height 5 ft. 8 in. (R); Pain 0/10; 22:00 BP 133 / 70; Pulse 77; Pulse Ox 99% on R/A; Pain 0/10; tm6 23:30 BP 117 / 73; Pulse 79; Resp 19; Temp 97.7(TE); Pulse Ox 97% on R/A; Pain 0/10; tm6 20:54 Body Mass Index 24.33 (72.57 kg, 172.72 cm) km8 20:54 Pain Scale: Adult km8 22:00 Pain Scale: Adult tm6 23:30 Pain Scale: Adult tm6 ED Course: 20:47 Patient arrived in ED. gm2 20:54 Arm band placed on right wrist. km8 20:55 Triage completed. km8 20:58 Misael Rincon MD is Attending Physician. rt 21:20 Inserted saline lock: 20 gauge in right antecubital area, using aseptic technique. tm6 Blood collected. 22:00 Sahil Alvarez RN is Primary Nurse. tm6 22:02 Patient has correct armband on for positive identification. Placed in gown. Bed in low tm6 position. Call light in reach. Side rails up X2. Provided Education on: plan of care. Client placed on continuous cardiac and pulse oximetry monitoring. NIBP monitoring applied. Pulse ox on. NIBP on. Door closed. Noise minimized. Lights dimmed. Warm blanket given. 22:10 CT Abd/Pelvis - IV Contrast Only In Process Unspecified. EDMS 23:31 No provider procedures requiring assistance completed. IV discontinued, intact, tm6 bleeding controlled, No redness/swelling at site. Pressure dressing applied. Administered Medications: 21:20 Drug: Famotidine IVP 20 mg IVP once; dilute with 10 mL 0.9% NaCl; give over 2 minutes tm6 Route: IVP; Site: right antecubital; 21:22 Drug: diphenhydrAMINE IVP 50 mg IVP once Route: IVP; Site: right antecubital; tm6 Medication: 22:02 VIS not applicable for this client. tm6 Outcome: 23:04 Discharge ordered by . rt 23:31 Discharged to home ambulatory, with family, tm6 23:31 Condition: stable 23:31 Discharge instructions given to patient, family, Instructed on discharge instructions, follow up and referral plans. Demonstrated understanding of instructions, follow-up care, 23:31 Patient left the ED. tm6 Signatures: Dispatcher [employer] EDMS [place], Misael, MD MD rt Franca Pete gm2 Merissa Tejeda, RN RN km8 Sahil Alvarez RN RN tm6
--- NOTE | 2023-11-23 23:04 | EDPHYS ---
Physician Documentation [facility] Name: Aminata Francisco Age: 73 yrs Sex: Female : 1950 Arrival Date: 11/23/2023 Time: 20:43 Bed 7 Private MD: ED Physician Misael Rincon HPI: 11/23 01:05 This 73 yrs old Female presents to ER via Ambulatory with complaints of Bloody Stools. rt 01:05 Patient presents to the ED with watery, bright red stools starting today. States that rt it is improving. Patient did have similar symptoms, is currently being followed by gastroenterology. Was told come to the ED for further evaluation. Denies any abdominal pain, nausea, vomiting. Denies anticoagulant use. Denies other acute complaints, symptoms are moderate in severity, no other aggravating alleviating factors.. Historical: - Allergies: 11/22 22:02 NSAIDS; tm6 - PMHx: 22:02 Rheumatoid Arthritis; tm6 - PSHx: 22:02 hysterectomy; tm6 - Immunization history:: Client reports receiving the 2nd dose of the Covid vaccine, Flu vaccine is up to date. - Social history:: Smoking status: Patient denies any tobacco usage or history of. Patient/guardian denies using alcohol, street drugs. - Family history:: not pertinent. ROS: 11/23 01:05 Constitutional: Negative for fever, chills, and weight loss, Cardiovascular: Negative rt for chest pain, palpitations, and edema, Respiratory: Negative for shortness of breath, cough, wheezing, and pleuritic chest pain, MS/Extremity: Negative for injury and deformity, Skin: Negative for injury, rash, and discoloration, Neuro: Negative for headache, weakness, numbness, tingling, and seizure, Psych: Negative for depression, anxiety, suicide ideation, homicidal ideation, and hallucinations, Abdomen/GI: Positive for rectal bleeding, Negative for abdominal pain, nausea and vomiting, Exam: 01:05 Constitutional: This is a well developed, well nourished patient who is awake, alert, rt and in no acute distress. Head/Face: Normocephalic, atraumatic. Chest/axilla: Normal chest wall appearance and motion. Nontender with no deformity. No lesions are appreciated. Cardiovascular: Regular rate and rhythm with a normal S1 and S2. No gallops, murmurs, or rubs. Normal PMI, no JVD. No pulse deficits. Respiratory: Lungs have equal breath sounds bilaterally, clear to auscultation and percussion. No rales, rhonchi or wheezes noted. No increased work of breathing, no retractions or nasal flaring. Abdomen/GI: Soft, non-tender, with normal bowel sounds. No distension or tympany. No guarding or rebound. No evidence of tenderness throughout. Skin: Warm, dry with normal turgor. Normal color with no rashes, no lesions, and no evidence of cellulitis. MS/ Extremity: Pulses equal, no cyanosis. Neurovascular intact. Full, normal range of motion. Neuro: Awake and alert, GCS 15, oriented to person, place, time, and situation. Cranial nerves II-XII grossly intact. Motor strength 5/5 in all extremities. Sensory grossly intact. Cerebellar exam normal. Normal gait. Vital Signs: 11/22 20:54 BP 139 / 65; Pulse 93; Resp 16; Temp 99.1(TE); Pulse Ox 97% on R/A; Weight 72.57 kg [facility] (R); Height 5 ft. 8 in. (R); Pain 0/10; 22:00 BP 133 / 70; Pulse 77; Pulse Ox 99% on R/A; Pain 0/10; tm6 23:30 BP 117 / 73; Pulse 79; Resp 19; Temp 97.7(TE); Pulse Ox 97% on R/A; Pain 0/10; tm6 20:54 Body Mass Index 24.33 (72.57 kg, 172.72 cm) [facility] 20:54 Pain Scale: Adult 8 22:00 Pain Scale: Adult tm6 23:30 Pain Scale: Adult tm6 MDM: 21:00 Patient medically screened. rt 11/23 01:05 Differential Diagnosis Rectal bleeding, acute blood loss anemia. Data reviewed: vital rt signs, nurses notes, lab test result(s), radiologic studies. Consideration of Admission/Observation Escalation of care including admission/observation considered. No significant drop in the hemoglobin. Patient is comfortable discharge, vital signs are stable, the bleeding does seem to be improving. No signs of upper GI bleed. Strict return precautions were discussed, patient to follow-up closely as an outpatient.. Independent interpretation of the following test(s) in the Emergency Department CT Scan: My interpretation is No bowel obstruction syndrome interpretation of CT scan images. Care significantly affected by the following chronic conditions: Rheumatoid arthritis. Counseling: I had a detailed discussion with the patient and/or guardian regarding the historical points, exam findings, and any diagnostic results supporting the discharge/admit diagnosis, lab results, radiology results, the need for outpatient follow up, to return to the emergency department if symptoms worsen or persist or if there are any questions or concerns that arise at home, Counseled patient extensively on findings with the pancreas and gave her printouts of the radiology report. Patient was instructed to follow-up with GI and primary care for further imaging and/or biopsy of pancreatic lesion.. Response to treatment: the patient's symptoms have mildly improved after treatment. 11/22 21:12 Order name: CBC with Diff; Complete Time: 22:00 rt 11/22 21:12 Order name: CMP; Complete Time: 22:00 rt 11/22 21:12 Order name: Lipase; Complete Time: 22:00 rt 11/22 21:12 Order name: CT Abd/Pelvis - IV Contrast Only; Complete Time: 22:32 rt 11/22 21:12 Order name: IV Saline Lock; Complete Time: 21:25 rt 11/22 21:12 Order name: Labs collected and sent; Complete Time: 21:25 rt Administered Medications: 11/22 21:20 Drug: Famotidine IVP 20 mg IVP once; dilute with 10 mL 0.9% NaCl; give over 2 minutes tm6 Route: IVP; Site: right antecubital; 21:22 Drug: diphenhydrAMINE IVP 50 mg IVP once Route: IVP; Site: right antecubital; tm6 Disposition Summary: 11/23/23 23:04 Discharge Ordered Notes: Location: Home rt Problem: new rt Symptoms: have improved rt Condition: Stable rt Diagnosis - Rectal bleeding rt Followup: rt - With: Private Physician - When: 2 - 3 days - Reason: Discharge Instructions: - Discharge Summary Sheet rt - Rectal Bleeding rt Forms: - Medication Reconciliation Form rt - Thank You Letter rt - Antibiotic Education rt - Prescription Opioid Use rt - Patient Portal Instructions rt - Leadership Thank You Letter rt Signatures: Dispatcher [employer] EDMisael Hoover MD MD rt Merissa Tejeda RN RN km8 Sahil Alvarez, RN RN tm6
[2023-11-23 23:37] VITALS: O2SAT 97
[2023-11-24 00:05] VITALS: BP 117/73; TEMP 97.7
== END ==
LOC: ER 20:43
DX: K62.5 Hemorrhage of anus and rectum (principal); Z88.6 Allergy status to analgesic agent
CPT/HCPCS: 85025; 36415; 83690; 80053; 74177; 96375; 96374; 99284; Q9967; J1200

== ENCOUNTER 2024-09-18 14:10 | Emergency (ER) | payer OTHER, BC ==
[2024-09-18] MEDS ORDERED: LIDOCAINE 1% MPF 5 ML VIAL ONE (15:35)
--- NOTE | 2024-09-18 16:01 | RAD REPORT ---
EXAM: Foot Right 3 View HISTORY: PAIN COMPARISON: None FINDINGS: Bones: No acute fracture identified. Alignment:No significant malalignment. Degenerative changes:Calcaneal spurring. Mild degenerative changes are present at the first MTP joint . Other: Small radiopaque foreign body in the soft tissues of the heel. This is of uncertain chronicity . IMPRESSION: No evidence of acute osseous abnormality involving the imaged foot.
--- NOTE | 2024-09-18 16:05 | RAD REPORT ---
EXAMINATION: Ankle Right 3 View CLINICAL INDICATION: Female, 73 years old. PAIN COMPARISON: No prior exam. FINDINGS: Possible acute avulsion fracture off of the lateral talar process. Deformity at the distal fibular ti p favored to be chronic from a remote fracture. No malalignment/dislocation. Calcaneal spurs. Other: Small radiopaque foreign body in the plantar aspect of the heel. Mild soft tissue swelling med ially. IMPRESSION: Possible avulsion fracture off of the lateral process of the talus.. Chronic appearing deformity at t he tip of the fibula. Small radiopaque foreign body in the subcutaneous tissues of the heel.
--- NOTE | 2024-09-18 16:06 | RAD REPORT ---
EXAMINATION: Shoulder Right 2+ Views CLINICAL INDICATION: Female, 73 years old. PAIN RIGHT COMPARISON: No prior exam. FINDINGS: No acute fracture. Overlap of the right humeral head with the glenoid likely projectional. Moderate right AC joint degenerative changes. Other: n/a IMPRESSION: No acute osseous abnormality. Overlap of the right humeral head with the glenoid is likely projection al. If there is concern for dislocation, suggest transscapular Y-view to better evaluate.
--- NOTE | 2024-09-18 16:06 | RAD REPORT ---
EXAMINATION: Elbow Right 3 View CLINICAL INDICATION: Female, 73 years old. PAIN RIGHT COMPARISON: No prior exam. FINDINGS: No acute fracture. No malalignment/dislocation. No significant focal degenerative change. Other: n/a IMPRESSION: No acute osseous abnormality.
--- NOTE | 2024-09-18 16:37 | ER ---
Nurse's Notes [facility] Name: Aminata Francisco Age: 73 yrs Sex: Female : 1950 Arrival Date: 09/18/2024 Time: 14:10 Bed 12 Private MD: Diagnosis: Avulsion fracture (chip fracture) of talus;Contusion of right elbow, initial encounter;Laceration without foreign body of right elbow, initial encounter Presentation: 09/18 14:27 Chief complaint: Patient states: fell about 2pm, tore skin on right elbow, right ankle ko1 hurts. Coronavirus screen: At this time, the client does not indicate any symptoms associated with coronavirus-19. Ebola Screen: No symptoms or risks identified at this time. Initial Sepsis Screen: Does the patient meet any 2 criteria? No. Patient's initial sepsis screen is negative. Does the patient have a suspected source of infection? No. Patient's initial sepsis screen is negative. Risk Assessment: Do you want to hurt yourself or someone else? Patient reports no desire to harm self or others. Onset of symptoms was September 18, 2024. 14:27 Method Of Arrival: Wheelchair ko1 14:27 Acuity: FLORESITA 4 ko1 Triage Assessment: 14:29 General: Appears uncomfortable, Behavior is cooperative, anxious. Pain: Complains of ko1 pain in right elbow and right ankle. Historical: - Allergies: 14:29 Iodine; ko1 14:29 NSAIDS; ko1 - PMHx: 14:29 Hypercholesterolemia; Rheumatoid Arthritis; ko1 - PSHx: 14:29 breats augmentation; hysterectomy; Tonsillectomy; hysterectomy; ko1 - Immunization history:: Adult Immunizations unknown, Last tetanus immunization: unknown. - Infectious Disease History:: Denies. - Social history:: Smoking status: Patient denies any tobacco usage or history of. - Family history:: not pertinent. - Hospitalizations: : No recent hospitalization is reported. Screenin:41 [facility] ED Fall Risk Assessment (Adult) History of falling in the last 3 months, me1 including since admission Yes- single mechanical fall (1 pt) Confusion or Disorientation No (0 pts) Intoxicated or Sedated No (0 pts) Impaired Gait No (0 pts) Mobility Assist Device Used No (0 pt) Altered Elimination No (0 pt) Score/Fall Risk Level 0 - 2 = Low Risk Maintained a safe environment, Provided non-skid footwear, Hourly rounding (assess needs \T\ fall precautionary measures) done. Abuse screen: Denies threats or abuse. Nutritional screening: No deficits noted. Tuberculosis screening: No symptoms or risk factors identified. Assessment: 15:41 General: Appears uncomfortable, well groomed, well developed, well nourished, Behavior me1 is calm, cooperative, appropriate for age, Reports fell about 2pm, tore skin on right elbow, right ankle and right shoulder hurts. Pain: Complains of pain in anterior aspect of right shoulder, right elbow and right ankle Pain does not radiate. Pain currently is 7 out of 10 on a pain scale. Quality of pain is described as aching, Pain began suddenly, Is continuous. Neuro: Level of Consciousness is awake, alert, obeys commands, Oriented to person, place, time, situation, Appropriate for age. Cardiovascular: Patient's skin is warm and dry. Respiratory: Airway is patent Respiratory effort is even, unlabored, Respiratory pattern is regular, symmetrical. GI: No signs and/or symptoms were reported involving the gastrointestinal system. : No signs and/or symptoms were reported regarding the genitourinary system. EENT: No signs and/or symptoms were reported regarding the EENT system. Derm: Wound noted right antecubital area and right elbow Wound is skin tear and laceration to right elbow. Musculoskeletal: Reports pain in anterior aspect of right shoulder, right elbow and right ankle. Injury Description: fell about 2pm, tore skin on right elbow, right ankle and right shoulder hurts. Vital Signs: 14:27 BP 134 / 67; Pulse 75; Resp 15; Temp 97; Pulse Ox 97% ; ko1 16:00 BP 132 / 64; Pulse 77; Resp 14; Pulse Ox 97% ; me1 17:04 BP 136 / 62; Pulse 72; Resp 15; Temp 98.1; Pulse Ox 98% ; me1 ED Course: 14:15 Patient arrived in ED. sj2 14:29 Triage completed. ko1 14:29 Arm band placed on right wrist. Patient placed in waiting room, Patient notified of ko1 wait time. 14:37 Dawit Erickson MD is Attending Physician. rn 15:33 Eddleman, Lona, RN is Primary Nurse. me1 15:35 XRAY Elbow RIGHT 3 view In Process Unspecified. EDMS 15:35 XRAY Ankle RIGHT 3 view In Process Unspecified. EDMS 15:35 XRAY Shoulder RIGHT 2 view In Process Unspecified. EDMS 15:35 XRAY Foot RIGHT 3 View In Process Unspecified. EDMS 15:41 Patient has correct armband on for positive identification. Bed in low position. Call me1 light in reach. Side rails up X2. Provided Education on: POC. Verbalized understanding.. Client placed on continuous cardiac and pulse oximetry monitoring. NIBP monitoring applied. Pulse ox on. NIBP on. 15:41 No provider procedures requiring assistance completed. me1 17:03 Patient did not have IV access during this emergency room visit. me1 Administered Medications: 16:32 Drug: Lidocaine Infiltration (1 %) 1 vials 5 ml Infiltration once; to bedside {Note: me1 Administered by Dr Erickson.} Volume: 5 ml; Route: Infiltration; 17:05 Follow up: Response: No adverse reaction; Pain is decreased me1 17:02 Drug: Acetaminophen-Codeine PO (300 mg-30 mg) 1 tablet PO once; RASS on ADMIN: Combtv4, me1 Very Agttd3, Agttd2, Rstlss1, AlertClm0, Drwsy-1, Lt Sdtn-2, Mod Sdtn-3, Dp Sdtn-4, UnArsble-5 Route: PO; 17:04 Follow up: Response: No adverse reaction; Pain is decreased me1 Medication: 15:41 VIS not applicable for this client. tn1 Outcome: 16:36 Discharge ordered by MD. patel 17:03 Discharged to home via wheelchair, tn1 17:03 Condition: stable 17:03 Discharge instructions given to patient, Instructed on discharge instructions, follow up and referral plans. medication usage, wound care, Demonstrated understanding of instructions, follow-up care, medications, wound care, Prescriptions given X 1, 17:05 Patient left the ED. me1 Signatures: Dispatcher [employer] Dawit Graham MD MD rn Oliver, Kathy, RN RN ko1 Lona Gar RN RN me1 Fernandez Allen2 Corrections: (The following items were deleted from the chart) 15:41 14:27 Chief complaint: Patient states: fell about 2pm, tore skin on right elbow, right me1 ankle hurts ko1
--- NOTE | 2024-09-18 16:37 | EDPHYS ---
Physician Documentation [facility] Name: Aminata Francisco Age: 73 yrs Sex: Female : 1950 Arrival Date: 09/18/2024 Time: 14:10 Bed 12 Private MD: ED Physician Dawit Erickson HPI: 09/18 15:22 This 73 yrs old Female presents to ER via Wheelchair with complaints of Fall Injury. rn 15:22 Details of fall: The patient fell from an upright position. Onset: The symptoms/episode rn began/occurred just prior to arrival. Associated injuries: The patient sustained Right elbow/right shoulder/right ankle/right foot. Severity of symptoms: At their worst the symptoms were mild, in the emergency department the symptoms are unchanged. The patient has not experienced similar symptoms in the past. Patient reports walking, fall, landed on right elbow, fell by accidentally rolling her right ankle. Reports pain to ankle and right foot at the heel.. Historical: - Allergies: 14:29 Iodine; ko1 14:29 NSAIDS; ko1 - PMHx: 14:29 Hypercholesterolemia; Rheumatoid Arthritis; ko1 - PSHx: 14:29 breats augmentation; hysterectomy; Tonsillectomy; hysterectomy; ko1 - Immunization history:: Adult Immunizations unknown, Last tetanus immunization: unknown. - Infectious Disease History:: Denies. - Social history:: Smoking status: Patient denies any tobacco usage or history of. - Family history:: not pertinent. - Hospitalizations: : No recent hospitalization is reported. ROS: 15:24 Constitutional: Negative for fever, chills, and weight loss, Neck: Negative for injury, rn pain, and swelling, Cardiovascular: Negative for chest pain, palpitations, and edema, Respiratory: Negative for shortness of breath, cough, wheezing, and pleuritic chest pain, Abdomen/GI: Negative for abdominal pain, nausea, vomiting, diarrhea, and constipation, Back: Negative for injury and pain, MS/Extremity: Positive for right elbow/shoulder/ankle/foot pain Skin: Positive for laceration to the right inner elbow Neuro: Negative for headache, weakness, numbness, tingling, and seizure, Exam: 15:24 Constitutional: This is a well developed, well nourished patient who is awake, alert, rn and in no acute distress. Head/Face: Normocephalic, atraumatic. MS/ Extremity: Pulses equal, no cyanosis. Neurovascular intact. Full, normal range of motion. Mild tenderness right lateral ankle with mild swelling and ecchymosis of the lateral malleolus. 3 cm curvilinear superficial laceration to the inside of the right elbow without focal bony tenderness and full range of motion. Mild painful range of motion right shoulder but no focal bony tenderness. Neuro: Awake and alert, GCS 15 Vital Signs: 14:27 BP 134 / 67; Pulse 75; Resp 15; Temp 97; Pulse Ox 97% ; ko1 16:00 BP 132 / 64; Pulse 77; Resp 14; Pulse Ox 97% ; me1 17:04 BP 136 / 62; Pulse 72; Resp 15; Temp 98.1; Pulse Ox 98% ; me1 Laceration: 16:33 Wound Repair of 3cm ( 1.2in ) subcutaneous laceration to right elbow. Distal rn neuro/vascular/tendon intact. Anesthesia: Wound infiltrated with 2 mls of 1% lidocaine. Wound prep: Extensive cleansing by me, Wound irrigation by me, Wound explored extensively. Skin closed with 5 4-0 Prolene using interrupted sutures and sterile technique. Dressed with 4x4's. Patient tolerated well. MDM: 14:37 Medical Screening Exam initiated rn 16:33 Differential diagnosis: abrasion, contusion, fracture, laceration. Data reviewed: vital rn signs, nurses notes, radiologic studies, plain films, and as a result, I will discharge patient. Counseling: I had a detailed discussion with the patient and/or guardian regarding the historical points, exam findings, and any diagnostic results supporting the discharge/admit diagnosis, radiology results, the need for outpatient follow up, to return to the emergency department if symptoms worsen or persist or if there are any questions or concerns that arise at home. Response to treatment: the patient's symptoms have markedly improved after treatment, and as a result, I will discharge patient. Special discussion: I discussed with the patient/guardian in detail that at this point there is no indication for admission to the hospital. It is understood, however, that if the symptoms persist or worsen the patient needs to return immediately for re-evaluation. Further emergent ED testing is not indicated at this point in time. I discussed with the patient/guardian in detail the need to arrange with the PCP or specialist further outpatient testing, MRI, Based on the history and exam findings, there is no indication for further emergent testing or inpatient evaluation. I discussed with the patient/guardian the need to see the orthopedic surgeon for further evaluation of the symptoms. ED course: X-ray right ankle shows possible avulsion fracture and may be fibular fracture. Will place in walking boot and will follow-up with her orthopedist, actually already has an appointment coming up this next week for another reason related to rheumatoid arthritis. Laceration sutured. Tolerated well. X-ray right foot shows foreign body in the soft tissues of indeterminate age. Patient reports used to run around as a child barefoot all the time but denies any recent puncture or stepping on anything that she knows of recently.. 09/18 14:38 Order name: XRAY Elbow RIGHT 3 view; Complete Time: 16:24 rn 09/18 14:38 Order name: XRAY Ankle RIGHT 3 view; Complete Time: 16:24 rn 09/18 15:15 Order name: XRAY Shoulder RIGHT 2 view; Complete Time: 16:24 rn 09/18 15:15 Order name: XRAY Foot RIGHT 3 View; Complete Time: 16:24 rn 09/18 15:15 Order name: Wound Care; Complete Time: 16:32 rn 09/18 15:15 Order name: Suture Tray at Bedside; Complete Time: 15:40 rn 09/18 16:32 Order name: Walking boot; Complete Time: 16:48 rn Administered Medications: 16:32 Drug: Lidocaine Infiltration (1 %) 1 vials 5 ml Infiltration once; to bedside {Note: me1 Administered by Dr Erickson.} Volume: 5 ml; Route: Infiltration; 17:05 Follow up: Response: No adverse reaction; Pain is decreased me1 17:02 Drug: Acetaminophen-Codeine PO (300 mg-30 mg) 1 tablet PO once; RASS on ADMIN: Combtv4, me1 Very Agttd3, Agttd2, Rstlss1, AlertClm0, Drwsy-1, Lt Sdtn-2, Mod Sdtn-3, Dp Sdtn-4, UnArsble-5 Route: PO; 17:04 Follow up: Response: No adverse reaction; Pain is decreased me1 Disposition Summary: 09/18/24 16:36 Discharge Ordered Notes: Location: Home rn Problem: new rn Symptoms: have improved rn Condition: Stable rn Diagnosis - Avulsion fracture (chip fracture) of talus rn - Contusion of right elbow, initial encounter rn - Laceration without foreign body of right elbow, initial encounter rn Followup: rn - With: Private Physician - When: 5 - 6 days - Reason: Recheck today's complaints, Re-evaluation by your physician Discharge Instructions: - Discharge Summary Sheet rn - Ankle Fracture rn - Laceration Care, Adult rn - Avulsion Fracture of the Foot rn Forms: - Medication Reconciliation Form rn - Antibiotic rn emergency - Prescription Opioid Use rn - Patient Portal Instructions rn - Leadership Thank You Letter rn Prescriptions: - acetaminophen-codeine 300-30 mg Oral tablet - take 1 tablet ORAL route every 8 hours as needed for pain; 15 tablet; Refills: rn 0, Product Selection Permitted Signatures: Dispatcher [employer] Dawit Graham MD MD rn Oliver, Kathy, RN RN ko1 Lona Gar RN RN me1
[2024-09-18] MEDS ORDERED: CODEINE 30MG/APAP 300MG TAB ONE (16:48)
[2024-09-18 17:28] VITALS: BP 136/62; TEMP 98.1; O2SAT 98
== END 2024-09-18 17:05 | disposition home or self-care (01) ==
LOC: ER 14:10
DX: S92.101A Unspecified fracture of right talus, initial encounter for closed fracture (principal); S51.011A Laceration without foreign body of right elbow, initial encounter; W18.30XA Fall on same level, unspecified, initial encounter; Z98.82 Breast implant status
CPT/HCPCS: 73630; 73080; 73030; 73610; 99284; 12032; J2003

== ENCOUNTER 2024-10-05 08:16 | Emergency (ER) | payer OTHER, BC ==
[2024-10-05] MEDS ORDERED: LIDOCAINE HCL JELLY 2% 6 ML SYRINGE TOP ONE (08:52)
--- NOTE | 2024-10-05 09:31 | ER ---
Nurse's Notes [facility] Name: Aminata Francisco Age: 73 yrs Sex: Female : 1950 Arrival Date: 10/05/2024 Time: 08:16 Bed 12 Private MD: Diagnosis: Encounter for removal of sutures Presentation: 10/05 08:23 Coronavirus screen: Client denies travel out of the [place] in the last 14 days. At this ll1 time, the client does not indicate any symptoms associated with coronavirus-19. Ebola Screen: Patient denies travel to an Ebola-affected area in the 21 days before illness onset. Initial Sepsis Screen: Does the patient meet any 2 criteria? No. Patient's initial sepsis screen is negative. Does the patient have a suspected source of infection? No. Patient's initial sepsis screen is negative. Risk Assessment: Do you want to hurt yourself or someone else? Patient reports no desire to harm self or others. Onset of symptoms was September 21, 2024. 08:23 Method Of Arrival: Ambulatory ll1 08:23 Acuity: FLORESITA 5 1 09:40 Chief complaint: Patient states: Suture removal. ll1 Triage Assessment: 08:23 General: Appears uncomfortable, Behavior is calm, cooperative, appropriate for age. ll1 Pain: Denies pain. Derm: no redness, swelling, or drainage from suture site Reports needs sutures removed from R elbow. Musculoskeletal: Circulation, motion, and sensation intact. Capillary refill < 3 seconds, in right fingers. Historical: - Allergies: 08:23 Iodine; ll1 08:23 NSAIDS; ll1 - PMHx: 08:23 Hypercholesterolemia; Rheumatoid Arthritis; ll1 - PSHx: 08:23 breats augmentation; hysterectomy; hysterectomy; Tonsillectomy; ll1 - Immunization history:: Adult Immunizations up to date. - Infectious Disease History:: Denies. - Social history:: Smoking status: Patient denies any tobacco usage or history of. Screenin:38 [facility] ED Fall Risk Assessment (Adult) History of falling in the last 3 months, ll1 including since admission No falls in past 3 months (0 pts) Confusion or Disorientation No (0 pts) Intoxicated or Sedated No (0 pts) Impaired Gait No (0 pts) Mobility Assist Device Used No (0 pt) Altered Elimination No (0 pt) Score/Fall Risk Level 0 - 2 = Low Risk Maintained a safe environment, Hourly rounding (assess needs \T\ fall precautionary measures) done. Abuse screen: Denies threats or abuse. Nutritional screening: No deficits noted. Tuberculosis screening: No symptoms or risk factors identified. Assessment: 09:38 Reassessment: No changes from previously documented assessment. Patient and/or family ll1 updated on plan of care and expected duration. Pain level reassessed. Patient is alert, oriented x 3, equal unlabored respirations, skin warm/dry/pink. Vital Signs: 08:23 BP 120 / 67; Pulse 72; Resp 16; Temp 97; Pulse Ox 97% ; Weight 72.57 kg; Height 5 ft. 7 ll1 in. ; Pain 0/10; 08:23 Body Mass Index 25.06 (72.57 kg, 170.18 cm) ll1 08:23 Pain Scale: Adult ll1 ED Course: 08:18 Patient arrived in ED. im 08:20 Kenny Nails PA is PHCP. cp 08:20 Jesu Lau DO is Attending Physician. cp 08:23 Triage completed. ll1 09:38 Arm band placed on. ll1 09:38 No provider procedures requiring assistance completed. Patient did not have IV access ll1 during this emergency room visit. 09:39 Patient has correct armband on for positive identification. Provided Education on: ll1 return to ED for worsening symptoms. Administered Medications: 09:00 Drug: Lidocaine Mucous Membrane Gel 2 % 1 ea 15 ml Mucous Membrane once; apply to ll1 sutures Volume: 15 ml; Route: Mucous Membrane; Medication: 09:40 VIS not applicable for this client. ll1 Outcome: 09:31 Discharge ordered by . cp 09:39 Discharged to home ambulatory, ll1 09:39 Condition: stable 09:39 Discharge instructions given to patient, Instructed on discharge instructions, follow up and referral plans. wound care, Demonstrated understanding of instructions, follow-up care, wound care, 09:40 Patient left the ED. ll1 Signatures: Kenny Nails PA PA cp Lewis, Lynsay, RN RN ll1 Winifred Landin im
--- NOTE | 2024-10-05 09:32 | EDPHYS ---
Physician Documentation [facility] Name: Aminata Francisco Age: 73 yrs Sex: Female : 1950 Arrival Date: 10/05/2024 Time: 08:16 Bed 12 Private MD: ED Physician Jesu Lau HPI: 10/05 08:45 This 73 yrs old Female presents to ER via Ambulatory with complaints of Suture Removal. cp 08:45 The patient has sutures on the right elbow. Previous treatment: The patient was cp initially treated 2 weeks ago, the care was rendered at [facility], Treatment type: The patient's original treatment included sutures. Sutures/johanna progress: The patient has no c/o's. The wound is well-healing with no redness, swelling, discharge, or dehiscence reported. Historical: - Allergies: 08:23 Iodine; ll1 08:23 NSAIDS; ll1 - PMHx: 08:23 Hypercholesterolemia; Rheumatoid Arthritis; ll1 - PSHx: 08:23 breats augmentation; hysterectomy; hysterectomy; Tonsillectomy; ll1 - Immunization history:: Adult Immunizations up to date. - Infectious Disease History:: Denies. - Social history:: Smoking status: Patient denies any tobacco usage or history of. ROS: 08:50 Constitutional: history per hpi cp 08:50 Skin: Positive for of the right elbow, repaired laceration, cp Exam: 08:55 Constitutional: The patient appears in no acute distress, alert, awake, comfortable, cp non-toxic, well developed, well nourished, 08:55 Cardiovascular: Rate: normal, cp 08:55 Respiratory: the patient does not display signs of respiratory distress, Respirations: normal, 08:55 Skin: repaired laceration of right elbow shows 5 simple interrupted sutures in place, wound edges appear well-healed and intact, no erythema and no swelling appreciated. Vital Signs: 08:23 BP 120 / 67; Pulse 72; Resp 16; Temp 97; Pulse Ox 97% ; Weight 72.57 kg; Height 5 ft. 7 ll1 in. ; Pain 0/10; 08:23 Body Mass Index 25.06 (72.57 kg, 170.18 cm) ll1 08:23 Pain Scale: Adult ll1 Procedures: 09:30 Suture/Staple removal: Removed 5 sutures, from right elbow, site appears well healed, cp dressed with Neosporin, Patient tolerated well. MDM: 09:31 Medical Screening Exam initiated cp 09:31 Data reviewed: vital signs, nurses notes, and as a result, I will discharge patient. cp 09:31 Counseling: I had a detailed discussion with the patient and/or guardian regarding the cp historical points, exam findings, and any diagnostic results supporting the discharge/admit diagnosis, to return to the emergency department if symptoms worsen or persist or if there are any questions or concerns that arise at home. Response to treatment: the patient's symptoms have markedly improved after treatment, and as a result, I will discharge patient. Administered Medications: 09:00 Drug: Lidocaine Mucous Membrane Gel 2 % 1 ea 15 ml Mucous Membrane once; apply to ll1 sutures Volume: 15 ml; Route: Mucous Membrane; Disposition: 11:31 I was immediately available on-site in the Emergency Department for consultation in the ms3 care of the patient. Disposition Summary: 10/05/24 09:31 Discharge Ordered Notes: Location: Home cp Problem: new cp Symptoms: have improved cp Condition: Stable cp Diagnosis - Encounter for removal of sutures cp Followup: cp - With: Private Physician - When: 2 - 3 days - Reason: Worsening of condition Discharge Instructions: - Discharge Summary Sheet cp - How to Change Your Wound Dressing cp - Suture Removal, Care After cp Forms: - Medication Reconciliation Form cp - Antibiotic Education cp - Prescription Opioid Use cp - Patient Portal Instructions cp - Leadership Thank You Letter cp Signatures: Kenny Nails PA PA cp Lewis, Lynsay, RN RN ll1 Jesu Lau DO DO ms3
[2024-10-05 09:45] VITALS: BP 120/67; TEMP 97; O2SAT 97
== END 2024-10-05 09:40 | disposition home or self-care (01) ==
LOC: ER 08:16
DX: Z48.02 Encounter for removal of sutures (principal)
CPT/HCPCS: 99283